=== PATIENT | male | born 1990 | race American Indian/Alaskan Native ===

== ENCOUNTER 2017-01-21 17:59 | Inpatient (IN) | payer OTHER ==
[2017-01-21] MEDS ORDERED: NACL 0.9% 1000 ML 2,000 ML ONE (18:10)
[2017-01-21] MEDS ORDERED: NACL 0.9% 1000 ML 1,000 ML IV ONE (18:39)
--- NOTE | 2017-01-21 18:39 | Emergency Department Report ---
HPI - General Chief Complaint: Hyperglycemia Time Seen by Provider: 01/21/17 18:16 - HPI HPI: This is a 26-year-old Afro-Malag[place] male who presents to the emergency department by EMS from home with complaint of some recent nausea, vomiting, weakness and shortness of breath. The patient was found in route, and once again upon presentation, to have critical high blood sugar. Patient has no history of diabetes. The patient is a vegan but says that he has been eating a lot of gummi bears, soda and fruit recently. He does not have a primary care doctor, any recent past medical history, any surgical history. No recent travel or sick contacts at home. The patient started off with nausea and vomiting yesterday and that has resolved but the patient now is weak and presents appearing tachypneic. He is a former occasional marijuana smoker but denies any other illicit drug use. No recent alcohol use. ED Past Medical Hx - Past Medical History Previous Medical History?: No - Surgical History Past Surgical History?: No - Social History Smoking Status: Never Smoker Substance Use Type: None - Medications Home Medications: Home Medications Medication Instructions Recorded Confirmed Last Taken Type No Known Home Medications [No 01/21/17 01/21/17 Unknown History Reported Home Medications] ED Review of Systems ROS: Stated complaint: DEHYDRATION Other details as noted in HPI Comment: All other systems reviewed and negative Constitutional: weakness. denies: fever Eyes: denies: eye pain, eye discharge, vision change ENT: denies: ear pain, throat pain Respiratory: shortness of breath. denies: cough Cardiovascular: denies: chest pain, palpitations Gastrointestinal: nausea, vomiting Genitourinary: denies: urgency, dysuria Musculoskeletal: denies: back pain, joint swelling, arthralgia Skin: denies: rash, lesions Neurological: weakness. denies: headache, numbness, paresthesias Physical Exam - Physical Exam Vital Signs: Vital Signs 01/21/17 18:09 Pulse Rate 129 H Blood Pressure 126/71 O2 Sat by Pulse 100 Oximetry Physical Exam: GENERAL: The patient is well-developed well-nourished. HEENT: Normocephalic. Atraumatic. Extraocular motions are intact. Patient has moist mucous membranes. Pupils equal reactive to light bilaterally. NECK: Supple. Trachea is midline. CHEST/LUNGS: Clear to auscultation. Patient has tachypnea and shallow breathing that appears consistent with Kussmaul respirations. HEART/CARDIOVASCULAR: Regular. There is mild to moderate tachycardia. There is no gallop rub or murmur. ABDOMEN: Abdomen is soft, nontender. Patient has normal bowel sounds. There is no abdominal distention. SKIN: Skin is warm and dry. NEURO: The patient is awake, alert, and oriented but does appear slightly dazed. The patient is cooperative. The patient has no focal neurologic deficits. The patient has normal speech. MUSCULOSKELETAL: There is no tenderness or deformity. There is no limitation range of motion. There is no evidence of acute injury. Cap refill less than 2 seconds. ED Course Vital Signs 01/21/17 18:09 Pulse Rate 129 H Blood Pressure 126/71 O2 Sat by Pulse 100 Oximetry ED Medical Decision Making - Lab Data Result diagrams: 01/21/17 18:36 01/21/17 19:34 - EKG Data -: EKG Interpreted by Me EKG shows normal: sinus rhythm, axis, intervals, QRS complexes (Q waves to the inferior leads), ST-T waves (nonspecific lateral ST-T waves) Rate: tachycardia (129 bpm) - EKG Data When compared to previous EKG there are: previous EKG unavailable Interpretation: other (sinus tachycardia, Q waves inferior leads, nonspecific ST -T changes) - Radiology Data Radiology results: image reviewed interpreted by me: Chest x-ray did not show any acute process. Heart is normal shape and size. No effusions. No pneumothorax. No signs of pneumonia seen. - Medical Decision Making 26-year-old male presents with a few days of nausea and vomiting followed by some weakness and appears with some abnormal respiration pattern. Patient has high anion gap acidosis and diabetic ketoacidosis as a new onset diabetic. Chest x-ray does not show any acute process. EKG does not show any ST elevation NH that is just very tachycardic. Patient given IV fluid resuscitation, started on insulin drip and will be admitted to the ICU. He has been accepted for admission by the hospitalist, Dr. Angela. - Differential Diagnosis DKA, HHNK, pneumonia, viral syndrome Critical Care Time: No Critical care attestation.: If time is entered above; I have spent that time in minutes in the direct care of this critically ill patient, excluding procedure time. ED Disposition Clinical Impression: High anion gap metabolic acidosis, Dehydration Diabetic ketoacidosis Qualifiers: Diabetes mellitus type: type 1 Diabetes mellitus complication detail: without coma Qualified Code(s): E10.10 - Type 1 diabetes mellitus with ketoacidosis without coma Leukocytosis Qualifiers: Leukocytosis type: unspecified Qualified Code(s): D72.829 - Elevated white blood cell count, unspecified Disposition: OP ADMITTED IP TO THIS HOSP Is pt being admited?: Yes Condition: Serious Instructions: Diabetic Ketoacidosis (ED) Time of Disposition: 20:54
[2017-01-21 18:53] LABS: Hematocrit 44.3 % (35.5-45.6); Hemoglobin 14.6 gm/dl (11.8-15.2); Mean Corpuscular HGB Conc 33 % (32-34); Mean Corpuscular Hemoglobin 33 pg (28-32); Mean Corpuscular Volume 100 fl (84-94); Platelet Count 191 K/mm3 (140-440); Red Blood Count 4.42 M/mm3 (3.65-5.03); Red Cell Distribution Width 12.3 % (13.2-15.2)
[2017-01-21 18:54] LABS: White Blood Count 22.3 K/mm3 (4.5-11.0)
[2017-01-21] MEDS ORDERED: D50W (25GM) IV PRN ×2 (18:55→20:49)
[2017-01-21] MEDS ORDERED: NovoLIN R 100 UNITS in NACL 0.9% 99 ML IV SCH (19:00)
[2017-01-21 19:23] LABS: BUN/Creatinine Ratio 27.14; Blastocytes % (Manual) 0 %; Blood Urea Nitrogen 38 mg/dL (9-20); Calcium 9.4 mg/dL (8.4-10.2); Chloride 82.4 mmol/L (98-107); Eosinophils % (Manual) 0 % (0.0-4.3); Potassium 5.7 mmol/L (3.6-5.0); Sodium 123 mmol/L (137-145)
[2017-01-21 19:24] LABS: Diff Status Complete; Platelet Estimate Consistent w Auto; RBC Morphology Normal
[2017-01-21] MEDS ORDERED: PROVENTIL IH ONE (19:26)
[2017-01-21] MEDS ORDERED: KIONEX PO ONE (19:27)
[2017-01-21 19:29] LABS: Anion Gap 42 mmol/L; Carbon Dioxide 4 mmol/L (22-30); Glucose 689 mg/dL (75-100)
--- NOTE | 2017-01-21 19:35 | Admit Criteria Form ---
Admission Criteria Documentation: DIABETES Clinical Indications for Admission to Inpatient Care (Place 'X' for any and all applicable criteria): Admission is indicated by presence of ALL (if I & II) or ANY ONE (if III or IV) of the following (1)(2)(3)(4): [X]I. Diabetes is uncontrolled as indicated by ANY ONE of the following: [X]a) Diabetic ketoacidosis as indicated by ALL of the following (8): [X]i) Hyperglycemia (eg, plasma glucose greater than 200 mg/ dL (11.1 mmol/L)) [X]ii) Acidosis (eg, arterial pH less than 7.30, serum bicarbonate level less than 15 mEq/L (mmol/L)) [ ]iii) Moderate ketonuria or ketonemia [ ]b) Hyperglycemic hyperosmolar state as indicated by ALL of the following(9)(10): [ ]i) Neurologic dysfunction (eg, stupor, coma, hemiparesis , seizure)(13) [ ]ii) Plasma glucose greater than 600 mg/dL (33.3 mmol/L) [ ]iii) Serum osmolality greater than 320 mOsm/kg (mmol/kg) [X ]c) Severe signs or symptoms secondary to hyperglycemia indicated by ANY ONE of the following: [ ]i) Altered mental status(10) [ ]ii) Significant hypovolemia or dehydration [ ]iii) Intractable nausea or vomiting [ ]iv) Unexplained fever or severe infection [X ]v) Severe electrolyte abnormality (eg, hypokalemia, hyperkalemia, hypernatremia) [ ]II. Management at other levels of care (Also use Diabetes: Observation Care as appropriate) is not feasible because of ANY ONE of the following: [ ]a) Condition was not adequately corrected with treatment at other levels of care. [ ]b) Treatment at other levels of care is not appropriate because of condition severity (eg, hyperosmolar coma). [X ]III. Contraindications and/or Inappropriate clinical situations for Observational Care in patients with Diabetes, when ANY ONE of the following is required: [ X]a) Patient require specific diagnostic workup or therapeutic intervention 22 [ ]b) Patient with abnormal vital signs or altered mental status 23 [ ]IV. General contraindications and/or Inappropriate clinical situations for Observational Care in patients with Diabetes, when ANY ONE of the following is required: [ ]a) Prediction of prolongation of LOS based on ANY ONE of the following may be considered as a contraindication for observational care 2, 3, 4, 5, 6, 7, 8, 9, 10, 11 [ ]i) Age > 65 yrs. [ ]ii) Patient arriving by ambulance [ ]iii) Patient with high acuity [ ]iv) Patient requiring vital sign monitoring [ ]v) Patient on IV medication [ ]b) Systolic blood pressures 180mmHg 3,12 [ ]c) Patient with altered mental status including delirium and other alteration of consciousness, (3) [ ]d) Patient whose discharge disposition will be to a intermediate home or rehabilitation home should not be managed in Emergency Department Observation Unit. CMS rule requires 3 days hospital stay before such placement.3,13 [ ]e) Patient with failure to thrive due to broad array of etiologies 3,16,17 [ ]f) Inability to ambulate 3,14 Extended stay beyond goal length of stay may be needed for(3)(20): [ ]a) Treatment of precipitating causes [ ]b) Development of hypoglycemia [ ]c) Complications of treatment [ ]d) Complications of decompensated diabetes (eg, acute gastric dilatation, persistent metabolic or neurologic derangement) [ ]e) Active Comorbidities [ ]f) Older patients( 65 years or older) The original [facility] [employer] content created by [employer] has been revised. The portions of the content which have been revised are identified through the use of italic text or in bold,and [facility] has neither reviewed nor approved the modified material. All other unmodified content is copyright [facility] division of [employer]. Please see references footnoted in the original [facility] [employer] edition 2016 Admission Criteria Met: Yes
[2017-01-21 20:02] LABS: BUN/Creatinine Ratio 28.46; Blood Urea Nitrogen 37 mg/dL (9-20); Calcium 9.3 mg/dL (8.4-10.2); Chloride 80.4 mmol/L (98-107); Potassium 5.1 mmol/L (3.6-5.0); Sodium 121 mmol/L (137-145)
[2017-01-21 20:03] LABS: Magnesium 2.3 mg/dL (1.7-2.3); Phosphorous 4.2 mg/dL (2.5-4.5)
[2017-01-21 20:05] LABS: Anion Gap 41 mmol/L
[2017-01-21 20:06] LABS: Carbon Dioxide 5 mmol/L (22-30); Glucose 627 mg/dL (75-100)
[2017-01-21] MEDS ORDERED: DILAUDID IV PRN (20:49)
[2017-01-21] MEDS ORDERED: DULCOLAX PR PRN (20:49)
--- NOTE | 2017-01-21 20:49 | Event Note ---
Date: 01/21/17 See H/p in reports DKA New onset DM Hyponatremia Metabolic acidosis
[2017-01-21 22:04] LABS: BUN/Creatinine Ratio 27.69; Blood Urea Nitrogen 36 mg/dL (9-20); Calcium 9.2 mg/dL (8.4-10.2); Chloride 84.6 mmol/L (98-107); Potassium 4.9 mmol/L (3.6-5.0); Sodium 124 mmol/L (137-145)
[2017-01-21 22:05] LABS: Magnesium 2.4 mg/dL (1.7-2.3); Phosphorous 2.5 mg/dL (2.5-4.5)
[2017-01-21 22:08] LABS: Anion Gap 39 mmol/L; Carbon Dioxide 5 mmol/L (22-30)
[2017-01-21 22:09] LABS: Glucose 555 mg/dL (75-100)
[2017-01-21] MEDS: NACL 0.9% 1000 ML 1,000 ML IV SCH (22:44)
[2017-01-21] MEDS: NovoLIN R 100 UNITS in NACL 0.9% 99 ML IV SCH (23:24)
[2017-01-21 23:29] LABS: BUN/Creatinine Ratio 28.33; Blood Urea Nitrogen 34 mg/dL (9-20); Calcium 9.3 mg/dL (8.4-10.2); Chloride 89.3 mmol/L (98-107); Glucose 465 mg/dL (75-100); Potassium 4.2 mmol/L (3.6-5.0); Sodium 126 mmol/L (137-145)
[2017-01-21 23:50] LABS: Anion Gap 36 mmol/L; Carbon Dioxide 5 mmol/L (22-30)
--- NOTE | 2017-01-22 00:35 | History and Physical Report ---
CHIEF COMPLAINT: Vomiting for 3 days. 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 Initially, the patient was very weak for 1 day after that started having vomiting, which has progressively increased over the last 3 days. The patient feels very weak and short of breath. Also, lost a lot of weight in the last couple of months. The patient does not have any history of diabetes. The patient is also a vegan, but states he has been eating a lot of gummy bears and junk foods recently. Does not have a primary care doctor. He has polyuria, polydipsia. He feels that his tongue is very dry. PAST MEDICAL HISTORY: No significant past medical history. PAST SURGICAL HISTORY: None. SOCIAL HISTORY: Does not smoke. No alcohol, no recreational drugs. REVIEW OF SYSTEMS: CONSTITUTIONAL: Weight loss and severe weakness present. No fever, no chills. HEENT: Has a dry mouth and dry tongue. Blurring of vision present. CARDIOVASCULAR AND RESPIRATORY SYSTEM: Has some shortness of breath. No chest pain, no palpitations. No congestion. GASTROINTESTINAL: Nausea and vomiting present. No diarrhea. Vomiting 5-6 times a day for the last 3 days. GENITOURINARY SYSTEM: No dysuria, no flank pain. MUSCULOSKELETAL SYSTEM: No joint pains. SKIN: No rashes. CENTRAL NERVOUS SYSTEM: No syncope, no seizures. A 14-point review of systems is done. PSYCHIATRIC: No depression. No suicidal or homicidal tendencies. LYMPHATIC AND ONCOLOGIC SYSTEM: No bruising. PHYSICAL EXAMINATION: GENERAL: Young male, cooperative during examination, in mild distress secondary to shortness of breath, slightly emaciated. VITAL SIGNS: Pulse rate is 129, blood pressure 126/71, sats are 100%. HEENT: Tongue is very dry. Mucous membranes are dry. NECK: Supple, no lymphadenopathy, no thyromegaly. LUNGS: Clear to auscultation and percussion. Good air entry. CARDIOVASCULAR: S1, S2 heard. No gallop, no murmur, no rub. Apical impulse in left fifth intercostal space in midclavicular line. ABDOMEN: Soft and benign. No hepatosplenomegaly. No guarding, no rigidity. Hernial orifices are normal. EXTREMITIES: Good pedal pulses. No pedal edema. SKIN: Dry. Skin turgor less. LABORATORY DATA: Significant for white count of 22,300, hemoglobin of 14.6, hematocrit of 44.3, platelet count of 191,000. Sodium is 121, potassium is 5.1, chloride is 80.4, bicarbonate is 5, BUN and creatinine 37 and 1.3, glucose is 627. PH is 6.985. EKG shows normal sinus rhythm, tachycardia, QRS complexes are normal. ST-T wave nonspecific changes and heart rate of 90 per minute. Chest x-ray did not show any acute process. ASSESSMENT AND PLAN: 1. Diabetic ketoacidosis, new onset diabetes, possibly juvenile diabetes. The patient is a 26-year-old can be Mature onset of diabetes in young. For now, diabetic ketoacidosis protocol initiated. IV insulin at 8 units initiated. The patient counseled about new onset diabetes. 2. Leukocytosis, possible urinary tract infection versus pneumonia. The patient will be treated with IV Levaquin 500 q.24 h. because of the elevated creatinine. 3. Hyponatremia should correct with correction of blood glucose levels. Pseudohyponatremia. 4. Hyperkalemia should correct with IV insulin. Diabetes education initiated. 5. Deep venous thrombosis prophylaxis, Lovenox 40 mg subcutaneous daily. 6. Renal insufficiency secondary to dehydration, should correct with IV fluids. CRITICAL CARE STATEMENT: The high probability of a clinically significant sudden or life-threatening deterioration of the endocrine and cardiovascular system, requirement of full and direct attention, intervention, and personal management. The aggregate critical care time was 40 minutes. The time is in addition to time spent performing reported procedures, but includes the followin. Data review and interpretation. 2. The patient assessment and monitoring of vital signs. 3. Documentation. 4. Medication orders and management. JOB# [id number] YUSRA/BOB GALE
[2017-01-22] MEDS ORDERED: SODIUM BICARBONATE 50 MEQ in NACL 0.9% 1000 ML 1,000 ML IV SCH (01:00)
[2017-01-22 01:23] LABS: Blood Urea Nitrogen 34 mg/dL (9-20); Calcium 9.3 mg/dL (8.4-10.2); Chloride 91.7 mmol/L (98-107); Glucose 414 mg/dL (75-100); Potassium 4.6 mmol/L (3.6-5.0); Sodium 131 mmol/L (137-145)
[2017-01-22] MEDS ORDERED: SODIUM BICARBONATE IV ONE ×2 (01:24)
[2017-01-22 01:26] LABS: Anion Gap 39 mmol/L
[2017-01-22 01:28] LABS: Carbon Dioxide 5 mmol/L (22-30)
[2017-01-22] MEDS: LEVAQUIN 500MG/100ML 500 MG/100 ML BAG IV SCH ×2 (02:33→21:04)
[2017-01-22 04:08] LABS: Blood Urea Nitrogen 31 mg/dL (9-20); Calcium 8.8 mg/dL (8.4-10.2); Carbon Dioxide 11 mmol/L (22-30); Glucose 264 mg/dL (75-100)
[2017-01-22 04:09] LABS: Anion Gap 30 mmol/L; Chloride 97.1 mmol/L (98-107); Potassium 3.5 mmol/L (3.6-5.0); Sodium 135 mmol/L (137-145)
[2017-01-22] MEDS ORDERED: THORAZINE IV ONE (05:10)
[2017-01-22] MEDS ORDERED: NACL 0.9% IV ONE (05:10)
[2017-01-22] MEDS: NovoLIN R 100 UNITS in NACL 0.9% 99 ML IV SCH (06:00)
[2017-01-22 06:17] LABS: Anion Gap 26 mmol/L; Blood Urea Nitrogen 27 mg/dL (9-20); Calcium 8.5 mg/dL (8.4-10.2); Carbon Dioxide 15 mmol/L (22-30); Chloride 100.6 mmol/L (98-107); Glucose 161 mg/dL (75-100); Potassium 3.3 mmol/L (3.6-5.0); Sodium 138 mmol/L (137-145)
--- NOTE | 2017-01-22 08:14 | XRay Report ---
AP CHEST: AP view of the chest demonstrates a normal mediastinal and cardiac contour with clear lungs and normal bony and soft tissue structures. IMPRESSION: Normal AP chest.
[2017-01-22] MEDS ORDERED: NACL 0.9% 250ML 250 ML ONE (09:40)
[2017-01-22 09:53] LABS: Urine Drugs of Abuse Note Disclamer
[2017-01-22 10:00] LABS: Bilirubin,Urine NEG (Negative); Blood,Urine MOD (Negative); Ketones,Urine 80 mg/dL (Negative); Leukocyte Esterase,Urine NEG (Negative); Mucus,Urine FEW /HPF; Nitrite,Urine NEG (Negative); RBC,Urine < 1.0 /HPF (0.0-6.0); Urobilinogen,Urine < 2.0 mg/dL (<2.0)
[2017-01-22] MEDS ORDERED: NACL 0.9% 250ML 250 ML IV ONE (10:06)
[2017-01-22] MEDS: LOVENOX SUB-Q SCH (10:46)
--- NOTE | 2017-01-22 11:13 | Consultation ---
History of Present Illness Consult date: 01/22/17 History of present illness: PULMONARY/CCM CONSULT NOTE (Full dictation # [id number]) Please see dictated notes for full details Medications and Allergies Allergies Allergy/AdvReac Type Severity Reaction Status Date / Time No Known Allergies Allergy Unverified 01/21/17 18:01 Home Medications Medication Instructions Recorded Confirmed Last Taken Type No Known Home Medications [No 01/21/17 01/21/17 Unknown History Reported Home Medications] Active Meds: Active Medications Al Hydrox/Mg Hydrox/Simethicone (Alum-Mag Hydrox-Simeth [id number]/5ml) 30 ml PO Q4H PRN PRN Reason: Indigestion Bisacodyl (Dulcolax) 10 mg KS QDAY PRN PRN Reason: constipation unrelieved by MOM Dextrose (D50w (25gm)) 0 ml IV ONCE PRN PRN Reason: Hypoglycemia Enoxaparin Sodium (Lovenox) 40 mg SUB-Q QDAY ISIDRO Last Admin: 01/22/17 10:46 Dose: 40 mg Hydromorphone HCl (Dilaudid) 0.5 mg IV Q3HR PRN PRN Reason: Pain , Severe (7-10) Sodium Chloride (Nacl 0.9% 1000 Ml) 1,000 mls @ 150 mls/hr IV DIRECT ISIDRO Last Admin: 01/21/17 22:44 Dose: 150 mls/hr Insulin Human Regular 100 (units/ Sodium Chloride) 100 mls @ 1 mls/hr IV TITR ISIDRO; 1 UNITS/HR PRN Reason: Protocol Last Titration: 01/22/17 10:10 Dose: 2 units/hr, 2 mls/hr Levofloxacin/Dextrose (Levaquin 500mg/100ml) 500 mg in 100 mls @ 100 mls/hr IV Q24H ISIDRO PRN Reason: Protocol Last Admin: 01/22/17 02:33 Dose: 100 mls/hr Potassium Chloride/Dextrose/Sod Cl (D5w/0.45% Nacl/Kcl 20 Meq) 20 meq in 1,000 mls @ 125 mls/hr IV DIRECT ISIDRO Influenza Virus Vaccine Quadrival (Fluarix Quad [id number](36 Mos+)) 60 mcg IM .ONCE ONE Stop: 01/22/17 12:01 Magnesium Hydroxide (Milk Of Magnesia) 30 ml PO Q4H PRN PRN Reason: Constipation Pneumococcal Polyvalent Vaccine (Pneumovax 23) 0.5 ml IM .ONCE ONE Stop: 01/22/17 12:01 Physical Examination Vital signs: Vital Signs Pulse BP Pulse Ox 129 H 126/71 100 01/21/17 18:09 01/21/17 18:09 01/21/17 18:09 Results - Laboratory Findings CBC and BMP: 01/21/17 18:36 01/22/17 10:57 Abnormal lab findings: Abnormal Labs 01/21/17 01/21/17 01/21/17 21:30 21:30 21:47 Sodium 124 L Potassium Chloride 84.6 L Carbon Dioxide 5 L* BUN 36 H Glucose 555 H* POC Glucose > 500 H Magnesium 2.4 H 01/21/17 01/21/17 01/22/17 23:00 23:05 00:02 Sodium 126 L Potassium Chloride 89.3 L Carbon Dioxide 5 L* BUN 34 H Glucose 465 H POC Glucose 444 H 360 H Magnesium 01/22/17 01/22/17 01/22/17 00:36 01:10 02:02 Sodium 131 L Potassium Chloride 91.7 L Carbon Dioxide 5 L* BUN 34 H Glucose 414 H POC Glucose 315 H 264 H Magnesium 01/22/17 01/22/17 01/22/17 03:04 03:25 04:10 Sodium 135 L Potassium 3.5 L D Chloride 97.1 L Carbon Dioxide 11 L BUN 31 H Glucose 264 H POC Glucose 243 H 207 H Magnesium 01/22/17 01/22/17 01/22/17 05:10 05:17 08:12 Sodium Potassium 3.3 L Chloride Carbon Dioxide 15 L BUN 27 H Glucose 161 H POC Glucose 211 H 129 H Magnesium 01/22/17 10:05 Sodium Potassium Chloride Carbon Dioxide BUN Glucose POC Glucose 128 H Magnesium
[2017-01-22 11:31] LABS: Anion Gap 17 mmol/L; BUN/Creatinine Ratio 28.75; Blood Urea Nitrogen 23 mg/dL (9-20); Calcium 8.4 mg/dL (8.4-10.2); Carbon Dioxide 21 mmol/L (22-30); Chloride 99.1 mmol/L (98-107); Glucose 147 mg/dL (75-100); Sodium 134 mmol/L (137-145)
[2017-01-22 11:36] LABS: Potassium 2.9 mmol/L (3.6-5.0)
[2017-01-22] MEDS ORDERED: FLUARIX QUAD 2016-2017(36 MOS+) IM ONE (12:00)
[2017-01-22] MEDS ORDERED: PNEUMOVAX 23 IM ONE (12:00)
[2017-01-22] MEDS: KCL 10MEQ/100ML 10 MEQ/100 ML BAG IV SCH ×8 (12:13→20:00)
[2017-01-22] MEDS: D5W/0.45% NACL/KCL 20 MEQ 20 MEQ/1,000 ML BAG IV SCH ×2 (12:14→21:03)
[2017-01-22] MEDS: PEPCID PO SCH (13:05)
[2017-01-22] MEDS ORDERED: NACL 0.9% 1000 ML 1,000 ML IV ONE ×2 (13:23→13:34)
[2017-01-22 13:39] LABS: BUN/Creatinine Ratio 28.57; Blood Urea Nitrogen 20 mg/dL (9-20); Calcium 8.2 mg/dL (8.4-10.2); Carbon Dioxide 20 mmol/L (22-30); Chloride 99.8 mmol/L (98-107); Glucose 104 mg/dL (75-100); Sodium 133 mmol/L (137-145)
[2017-01-22] MEDS ORDERED: NACL 0.9% 1000 ML 1,000 ML IV SCH (14:00)
[2017-01-22 14:32] LABS: Anion Gap 17 mmol/L; Potassium 3.5 mmol/L (3.6-5.0)
--- NOTE | 2017-01-22 15:43 | XRay Report ---
AP CHEST: HISTORY: PICC placement AP view of the chest demonstrates a normal mediastinal and cardiac contour with clear lungs and normal bony and soft tissue structures. Right arm PICC terminates at the cavoatrial junction. IMPRESSION: Unremarkable AP chest.
[2017-01-22 16:39] LABS: Anion Gap 14 mmol/L; BUN/Creatinine Ratio 28.33; Blood Urea Nitrogen 17 mg/dL (9-20); Calcium 7.9 mg/dL (8.4-10.2); Carbon Dioxide 22 mmol/L (22-30); Glucose 130 mg/dL (75-100); Potassium 3.1 mmol/L (3.6-5.0); Sodium 136 mmol/L (137-145)
--- NOTE | 2017-01-22 16:50 | Progress Note ---
Assessment and Plan Assessment and plan: DKA with altered mental status Malnutrition Leukocytosis Substance abuse - Patient admitted to the ICU and on DKA protocol - Replete potassium - Continue empirically on Levaquin - We will monitor closely - will certified drug counselor once his mentation cleared - Urinalysis is negative for UTI, blood cultures pending DVT prophylaxis - lovenox Disposition - Continue inpatient care The high probability of a clinically significant, sudden or life threatening deterioration of the [Endocrine, neurologic] system(s) required my full and direct attention, intervention and personal management. The aggregate critical care time was [32] minutes. This time is in addition to time spent performing reported procedures but includes the following: [x] Data Review and interpretation [x] Patient assessment and monitoring of vital signs [x] Documentation [x] Medication orders and management History Interval history: Patient was seen and evaluated at the bedside. Patient was lethargic and history was taken from the father who was in the room with the patient. I have discussed the management plan with the father and the nurse. I called the mother to discuss about the patent @[phone] but she didn't pick up driver the phone. Hospitalist Physical - Physical exam Narrative exam: Not in cardiopulmonary distress. The patient is cachectic. Vital signs as documented. Head exam is unremarkable. No scleral icterus . Neck is without jugular venous distension, thyromegaly, or carotid bruits. Lungs are clear to auscultation. Cardiac exam reveals regular rate and Rhythm. First and second heart sounds normal. No murmurs, rubs or gallops. Abdominal exam reveals normal bowel sounds, no masses, no organomegaly and no aortic enlargement. Extremities are nonedematous and both femoral and pedal pulses are normal. 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 - Constitutional Vitals: Temp Pulse Resp BP Pulse Ox 98.2 F 110 H 12 96/64 100 01/22/17 16:00 01/22/17 14:10 01/22/17 14:10 01/22/17 14:10 01/22/17 14:10 Results - Labs CBC & Chem 7: 01/21/17 18:36 01/22/17 15:30 Labs: Laboratory Last Values WBC 22.3 K/mm3 (4.5-11.0) H 01/21/17 18:36 RBC 4.42 M/mm3 (3.65-5.03) 01/21/17 18:36 Hgb 14.6 gm/dl (11.8-15.2) 01/21/17 18:36 Hct 44.3 % (35.5-45.6) 01/21/17 18:36 MCV 100 fl (84-94) H 01/21/17 18:36 MCH 33 pg (28-32) H 01/21/17 18:36 MCHC 33 % (32-34) 01/21/17 18:36 RDW 12.3 % (13.2-15.2) L 01/21/17 18:36 Plt Count 191 K/mm3 (140-440) 01/21/17 18:36 Add Manual Diff Complete 01/21/17 18:36 Total Counted 100 01/21/17 18:36 Seg Neutrophils % Beam Saw Operator 01/21/17 18:36 Seg Neuts % (Manual) 90.0 % (40.0-70.0) H 01/21/17 18:36 Band Neutrophils % 6.0 % 01/21/17 18:36 Lymphocytes % (Manual) 2.0 % (13.4-35.0) L 01/21/17 18:36 Reactive Lymphs % (Man) 0 % 01/21/17 18:36 Monocytes % (Manual) 2.0 % (0.0-7.3) 01/21/17 18:36 Eosinophils % (Manual) 0 % (0.0-4.3) 01/21/17 18:36 Metamyelocytes % 0 % 01/21/17 18:36 Myelocytes % 0 % 01/21/17 18:36 Promyelocytes % 0 % 01/21/17 18:36 Blast Cells % 0 % 01/21/17 18:36 Nucleated RBC % Not Reportable 01/21/17 18:36 Seg Neutrophils # Man 20.1 K/mm3 (1.8-7.7) H 01/21/17 18:36 Band Neutrophils # 1.3 K/mm3 01/21/17 18:36 Lymphocytes # (Manual) 0.4 K/mm3 (1.2-5.4) L 01/21/17 18:36 Abs React Lymphs (Man) 0.0 K/mm3 01/21/17 18:36 Monocytes # (Manual) 0.4 K/mm3 (0.0-0.8) 01/21/17 18:36 Eosinophils # (Manual) 0.0 K/mm3 (0.0-0.4) 01/21/17 18:36 Basophils # (Manual) 0.0 K/mm3 (0.0-0.1) 01/21/17 18:36 Metamyelocytes # 0.0 K/mm3 01/21/17 18:36 Myelocytes # 0.0 K/mm3 01/21/17 18:36 Promyelocytes # 0.0 K/mm3 01/21/17 18:36 Blast Cells # 0.0 K/mm3 01/21/17 18:36 WBC Morphology Not Reportable 01/21/17 18:36 Hypersegmented Neuts Not Reportable 01/21/17 18:36 Hyposegmented Neuts Not Reportable 01/21/17 18:36 Hypogranular Neuts Not Reportable 01/21/17 18:36 Smudge Cells Not Reportable 01/21/17 18:36 Toxic Granulation Not Reportable 01/21/17 18:36 Toxic Vacuolation Not Reportable 01/21/17 18:36 Dohle Bodies Not Reportable 01/21/17 18:36 Pelger-Huet Anomaly Not Reportable 01/21/17 18:36 Ruthie Rods Not Reportable 01/21/17 18:36 Platelet Estimate Consistent w auto 01/21/17 18:36 Clumped Platelets Not Reportable 01/21/17 18:36 Plt Clumps, EDTA Not Reportable 01/21/17 18:36 Large Platelets Not Reportable 01/21/17 18:36 Giant Platelets Not Reportable 01/21/17 18:36 Platelet Satelliting Not Reportable 01/21/17 18:36 Plt Morphology Comment Not Reportable 01/21/17 18:36 RBC Morphology Normal 01/21/17 18:36 Dimorphic RBCs Not Reportable 01/21/17 18:36 Polychromasia Not Reportable 01/21/17 18:36 Hypochromasia Not Reportable 01/21/17 18:36 Poikilocytosis Not Reportable 01/21/17 18:36 Anisocytosis Not Reportable 01/21/17 18:36 Microcytosis Not Reportable 01/21/17 18:36 Macrocytosis Not Reportable 01/21/17 18:36 Spherocytes Not Reportable 01/21/17 18:36 Pappenheimer Bodies Not Reportable 01/21/17 18:36 Sickle Cells Not Reportable 01/21/17 18:36 Target Cells Not Reportable 01/21/17 18:36 Tear Drop Cells Not Reportable 01/21/17 18:36 Ovalocytes Not Reportable 01/21/17 18:36 Helmet Cells Not Reportable 01/21/17 18:36 [place] Bodies Not Reportable 01/21/17 18:36 [place] Rings Not Reportable 01/21/17 18:36 Lui Cells Not Reportable 01/21/17 18:36 Bite Cells Not Reportable 01/21/17 18:36 Crenated Cell Not Reportable 01/21/17 18:36 Elliptocytes Not Reportable 01/21/17 18:36 Acanthocytes (Spur) Not Reportable 01/21/17 18:36 Rouleaux Not Reportable 01/21/17 18:36 Hemoglobin C Crystals Not Reportable 01/21/17 18:36 Schistocytes Not Reportable 01/21/17 18:36 Malaria parasites Not Reportable 01/21/17 18:36 Gregory Bodies Not Reportable 01/21/17 18:36 Hem Pathologist Commnt No 01/21/17 18:36 VBG pH 6.985 (7.320-7.420) L* 01/21/17 18:36 Sodium 136 mmol/L (137-145) L 01/22/17 15:30 Potassium 3.1 mmol/L (3.6-5.0) L 01/22/17 15:30 Chloride 103.0 mmol/L (98-107) 01/22/17 15:30 Carbon Dioxide 22 mmol/L (22-30) 01/22/17 15:30 Anion Gap 17 mmol/L 01/22/17 12:52 BUN 17 mg/dL (9-20) 01/22/17 15:30 Creatinine 0.6 mg/dL (0.8-1.5) L 01/22/17 15:30 Estimated GFR > 60 ml/min 01/22/17 15:30 BUN/Creatinine Ratio 28.33 % 01/22/17 15:30 Glucose 130 mg/dL (75-100) H 01/22/17 15:30 POC Glucose 172 (70-105) H 01/22/17 14:35 Hemoglobin A1c 12.2 % (4-6) H 01/21/17 18:36 Osmolality 331 Mosm/kg 01/21/17 21:30 Lactic Acid 1.2 mmol/L (0.7-2.0) 01/22/17 13:24 Calcium 7.9 mg/dL (8.4-10.2) L 01/22/17 15:30 Phosphorus 2.5 mg/dL (2.5-4.5) D 01/21/17 21:30 Magnesium 2.4 mg/dL (1.7-2.3) H 01/21/17 21:30 C-Reactive Protein 8.90 mg/dL (0.00-1.30) H 01/22/17 12:52 NT-Pro-B Natriuret Pep 1581 pg/mL (0-450) H 01/22/17 12:52 Urine Color Yellow (Yellow) 01/22/17 09:35 Urine Turbidity Clear (Clear) 01/22/17 09:35 Urine pH 6.0 (5.0-7.0) 01/22/17 09:35 Ur Specific [place] 1.018 (1.003-1.030) 01/22/17 09:35 Urine Protein 30 mg/dl mg/dL (Negative) 01/22/17 09:35 Urine Glucose (UA) >=500 mg/dL (Negative) 01/22/17 09:35 Urine Ketones 80 mg/dL (Negative) 01/22/17 09:35 Urine Blood Mod (Negative) 01/22/17 09:35 Urine Nitrite Neg (Negative) 01/22/17 09:35 Urine Bilirubin Neg (Negative) 01/22/17 09:35 Urine Urobilinogen < 2.0 mg/dL (<2.0) 01/22/17 09:35 Ur Leukocyte Esterase Neg (Negative) 01/22/17 09:35 Urine WBC (Auto) 2.0 /HPF (0.0-6.0) 01/22/17 09:35 Urine RBC (Auto) < 1.0 /HPF (0.0-6.0) 01/22/17 09:35 U Epithel Cells (Auto) < 1.0 /HPF (0-13.0) 01/22/17 09:35 Urine Mucus Few /HPF 01/22/17 09:35 Urine Opiates Screen Presumptive negative 01/22/17 09:35 Urine Methadone Screen Presumptive negative 01/22/17 09:35 Ur Barbiturates Screen Presumptive negative 01/22/17 09:35 Ur Phencyclidine Scrn Presumptive negative 01/22/17 09:35 Ur Amphetamines Screen Presumptive negative 01/22/17 09:35 U Benzodiazepines Scrn Presumptive negative 01/22/17 09:35 Urine Cocaine Screen Presumptive negative 01/22/17 09:35 U Marijuana (THC) Screen Presumptive positive 01/22/17 09:35 Drugs of Abuse Note Disclamer 01/22/17 09:35 Hypokalemia, positive for marijuana.
--- NOTE | 2017-01-22 18:30 | Cat Scan Report ---
FINAL REPORT EXAM: CT HEAD/BRAIN WO CON HISTORY: Altered mental status TECHNIQUE: CT examination of the head without IV contrast PRIORS: None. FINDINGS: No acute air-fluid level visualized in the included air-filled sinuses. Bone windows demonstrate no fracture. The brain is without mass, mass effect, hemorrhage, or acute infarct. There is no extra-axial intracranial bleed, brain bleed, or midline shift. The ventricles and sulci are age-appropriate. IMPRESSION: No acute CVA, intracranial bleed, or brain mass
--- NOTE | 2017-01-23 01:35 | Consultation ---
CONSULTING PHYSICIAN: Mk Angela MD REASON FOR CONSULTATION: Diabetic ketoacidosis, need for IV insulin admission. CHIEF COMPLAINT AND HISTORY OF PRESENT ILLNESS: The patient is a young 26-year-old -[place] male with past medical history according to him none, who came into the Emergency Room complaining of recent nausea, vomiting, overall generalized weakness, shortness of breath. He was found to have high blood sugars, no prior history. He denied any sick contacts. Denied any chest pain, any cough, or expectoration, any dysuria, any open sores or wounds on his body. He was evaluated and found to be essentially new onset diabetic and diabetic ketoacidosis, admitted to the Intensive Care Unit. However, when I stopped by to see him, he was hypotensive, mean arterial pressures running in the 50s. He was slow to arouse, but had spontaneous movements to all the extremities. With regards to tobacco use/abuse history, he denies any history whatsoever. When asked about a family history of diabetes, he is unable to give me an answer. This really is as much of the history of presentation as I have. PAST MEDICAL HISTORY: None. PAST SURGICAL HISTORY: None. MEDICATIONS: He was on at the time I stopped by to see him, according to the medication administration record included the following: He was on IV insulin at 2 units per hour, p.r.n. Dulcolax, Lovenox 40 mg subcutaneous daily, Pepcid 20 mg p.o. daily, Dilaudid 0.5 mg IV q.3h. p.r.n., Levaquin 500 mg IV daily, milk of magnesia p.r.n., potassium chloride 10 mEq was being replaced, I believe 8 bags were being given. He was on a D5 half NS drip at 125 an hour and had received some sodium chloride at 150 an hour earlier. ALLERGIES: No known drug allergies. DIET: Thin gentleman. Denies significant weight loss or gain in the preceding few weeks to months. FAMILY AND SOCIAL HISTORY: He is smoker. Denies alcohol or illicit drug use or abuse. He does admit to occasional . Family history otherwise noncontributory. REVIEW OF SYSTEMS: No loss of consciousness. No new onset seizures. No new onset focal weakness. No gross hematochezia or melena. No gross hematuria or dysuria. No hematemesis. He did have emesis. He had nausea. No hemoptysis. No palpitations. Complete review of systems obtained. Pertinent positives and/or negatives as in body of history above, otherwise they are noncontributory. PHYSICAL EXAMINATION: VITAL SIGNS: At presentation, he was afebrile, temperature 98.2, pulse was 129, respiratory rate was 22, blood pressure was 126/71, oxygen sats were 100%, inspired oxygen concentration was not recorded. Blood pressure has trended down and as mentioned, last blood pressure was 76/40. HEAD, EYES, EARS, NOSE, AND THROAT: Pupils are equal, round, about 3-4 mm, reactive to light. Extraocular muscle movements are intact. Oropharynx is a Mallampati #2 oropharynx. He has a whitish creamy exudate over his tongue and nontender. Grossly, no palpable lymph nodes in the supraclavicular or submandibular lymph node chains. LUNGS: Auscultation of both lung carranza actually revealed faint right lower lobe rales. No wheezing. HEART: Heart sounds 1 and 2 are heard, regular rate and rhythm at the time of my evaluation. He was tachycardic. ABDOMEN: Flat, soft, bowel sounds are positive, nontender. EXTREMITIES: Without overt digital clubbing, cyanosis, or pedal edema. NEUROLOGIC: The exam was grossly nonfocal. He was lethargic. LABORATORY DATA: From my review are as follows: White cell count 20,300 with a hemoglobin of 14.6, hematocrit of 44.3, and platelet count of 191. Venous blood gas was 7.0, essentially at presentation. Serum sodium was 121, potassium 5.1, chloride 80, bicarbonate was 5, BUN was 37, creatinine was 1.3, glucose was 627. Hemoglobin A1c 12.2. Phosphorus and mag were within normal limits. Urinalysis today shows negative for leukocyte esterase and nitrites, really bland. Urine drug screen was presumptive positive for tetrahydrocannabinol. Chest x-ray was done. I have reviewed the radiologist's interpretation. I have also reviewed the chest x-ray itself, and I do agree it is a normal looking chest x-ray of the young thin gentleman. No gross pneumothorax, no gross bony fracture. ASSESSMENT AND PLAN: We have a young gentleman in with a new onset diabetes, diabetic ketoacidosis, but significantly hypotensive. His numbers do not suggest overwhelming intravascular volume depletion; however, we certainly cannot rule that out. Recommendations will be to continue empiric antibiotics as ordered. Cultures have been ordered. I will get a CRP level as well as lactic acid levels and trend as necessary. He is going to get a bolus of 1 liter of normal saline now and we will target mean arterial pressures greater than or equal to about 60 mmHg. Aspiration precautions will be maintained and oxygen will be titrated as necessary to keep sats greater than or equal to about 92%, possible infection include possible pneumonia, may be an aspiration pneumonia. I will also send sputum for cultures and sensitivities. He is appropriately now on GI and DVT prophylaxis. Flu and pneumonia vaccination will be per protocol. Thank you very much for the consult, Dr. Angela. We will follow along and make further recommendations as picture progresses/becomes clearer. JOB# [id number] ACACIA/BOB
[2017-01-23 06:07] LABS: Eosinophils % (Auto) 0.1 % (0.0-4.3)
[2017-01-23 06:14] LABS: Anion Gap 15 mmol/L; Blood Urea Nitrogen 8 mg/dL (9-20); Calcium 7.9 mg/dL (8.4-10.2); Carbon Dioxide 24 mmol/L (22-30); Glucose 140 mg/dL (75-100); Sodium 135 mmol/L (137-145)
[2017-01-23 06:17] LABS: Potassium 2.1 mmol/L (3.6-5.0)
[2017-01-23] MEDS ORDERED: K-DUR PO ONE ×2 (07:18→09:08)
[2017-01-23 07:52] LABS: Basophils % (Auto) 0.1 % (0.0-1.8); Hemoglobin 12.4 gm/dl (11.8-15.2); Mean Corpuscular HGB Conc 36 % (32-34); Mean Corpuscular Hemoglobin 33 pg (28-32); Platelet Count 124 K/mm3 (140-440); Red Blood Count 3.73 M/mm3 (3.65-5.03); Red Cell Distribution Width 12.6 % (13.2-15.2); White Blood Count 13.2 K/mm3 (4.5-11.0)
[2017-01-23 07:56] LABS: Hematocrit 34.4 % (35.5-45.6); Mean Corpuscular Volume 92 fl (84-94)
[2017-01-23] MEDS ORDERED: KCL 20MEQ/100ML 20 MEQ/100 ML BAG IV SCH (08:00)
[2017-01-23 08:22] LABS: Magnesium 1.8 mg/dL (1.7-2.3)
[2017-01-23 08:45] LABS: Phosphorous < 0.3 mg/dL (2.5-4.5)
[2017-01-23] MEDS ORDERED: KPHOS 45 MMOL in NACL 0.9% 500 ML 500 ML IV ONE (09:30)
[2017-01-23] MEDS: KPHOS 45 MMOL in NACL 0.9% 500 ML 500 ML IV SCH ×2 (09:47→15:17)
[2017-01-23] MEDS: LOVENOX SUB-Q SCH (09:49)
[2017-01-23] MEDS: PEPCID PO SCH (09:50)
[2017-01-23] MEDS: LEVAQUIN PO SCH (09:52)
[2017-01-23] MEDS ORDERED: MAGNESIUM SULFATE 2GM/50ML 2 GM/50 ML BAG IV ONE ×2 (10:00→23:00)
--- NOTE | 2017-01-23 11:22 | Progress Note ---
Assessment and Plan - Patient Problems (1) Sepsis syndrome Current Visit: Yes Status: Acute Plan to address problem: - may all be related to hypovolemia - cultures NGTD - continue empiric AB's - continue volume resuscitation (2) Diabetic ketoacidosis Current Visit: Yes Status: Acute Qualifiers: Diabetes mellitus type: type 1 Diabetes mellitus complication detail: without coma Qualified Code(s): E10.10 - Type 1 diabetes mellitus with ketoacidosis without coma Plan to address problem: - weaned off IV insulin - per attending otherwise Subjective Date of service: 01/23/17 Principal diagnosis: DKA; Sepsis Syndrome Interval history: Seen and examined at bedside; 24 hour events reviewed; nursing and respiratory care staff consulted; no adverse overnight events reported to me; resting in bed ; looks and feels much better; hypotension improved and weaning off vasopressors ; No N/V/F/C Objective Vital Signs - 12hr 01/22/17 01/22/17 01/22/17 23:30 23:40 23:42 Temperature Pulse Rate 106 H 100 H 101 H Respiratory 13 12 12 Rate Blood Pressure 93/52 93/52 93/52 O2 Sat by Pulse 98 98 98 Oximetry 01/22/17 01/23/17 01/23/17 23:50 00:00 00:10 Temperature 98.8 F Pulse Rate 107 H 102 H 102 H Respiratory 11 L 12 13 Rate Blood Pressure 93/52 99/51 99/51 O2 Sat by Pulse 98 97 98 Oximetry 01/23/17 01/23/17 01/23/17 00:20 00:30 00:40 Temperature Pulse Rate 102 H 101 H 95 H Respiratory 16 17 15 Rate Blood Pressure 99/51 99/51 99/51 O2 Sat by Pulse 100 100 100 Oximetry 01/23/17 01/23/17 01/23/17 00:50 01:00 01:10 Temperature Pulse Rate 97 H 97 H 107 H Respiratory 13 11 L 11 L Rate Blood Pressure 99/51 97/45 97/45 O2 Sat by Pulse 99 98 Oximetry 01/23/17 01/23/17 01/23/17 01:20 01:30 01:40 Temperature Pulse Rate 107 H 110 H 106 H Respiratory 11 L 15 11 L Rate Blood Pressure 97/45 97/45 97/45 O2 Sat by Pulse 98 98 98 Oximetry 01/23/17 01/23/17 01/23/17 01:50 02:00 02:10 Temperature Pulse Rate 117 H 110 H 96 H Respiratory 15 16 17 Rate Blood Pressure 97/45 101/55 101/55 O2 Sat by Pulse 98 98 100 Oximetry 01/23/17 01/23/17 01/23/17 02:20 02:30 02:40 Temperature Pulse Rate 97 H 93 H 92 H Respiratory 17 15 12 Rate Blood Pressure 101/55 101/55 101/55 O2 Sat by Pulse 100 98 99 Oximetry 01/23/17 01/23/17 01/23/17 02:50 03:00 03:10 Temperature Pulse Rate 99 H 103 H 90 Respiratory 12 14 12 Rate Blood Pressure 101/55 88/49 88/49 O2 Sat by Pulse 99 100 Oximetry 01/23/17 01/23/17 01/23/17 03:20 03:30 03:40 Temperature Pulse Rate 93 H 93 H 89 Respiratory 15 18 13 Rate Blood Pressure 88/49 88/49 88/49 O2 Sat by Pulse 100 100 100 Oximetry 01/23/17 01/23/17 01/23/17 03:50 04:00 04:10 Temperature 98.4 F Pulse Rate 87 94 H 98 H Respiratory 15 12 12 Rate Blood Pressure 88/49 86/47 86/47 O2 Sat by Pulse 100 97 Oximetry 01/23/17 01/23/17 01/23/17 04:20 04:30 04:40 Temperature Pulse Rate 96 H 99 H 82 Respiratory 13 12 13 Rate Blood Pressure 86/47 86/47 86/47 O2 Sat by Pulse 98 98 100 Oximetry 01/23/17 01/23/17 01/23/17 04:50 05:00 05:10 Temperature Pulse Rate 84 89 93 H Respiratory 15 12 10 L Rate Blood Pressure 86/47 89/48 89/48 O2 Sat by Pulse 100 100 Oximetry 01/23/17 01/23/17 01/23/17 05:20 05:30 05:40 Temperature Pulse Rate 87 94 H 97 H Respiratory 10 L 13 13 Rate Blood Pressure 89/48 89/48 89/48 O2 Sat by Pulse 100 97 98 Oximetry 01/23/17 01/23/17 01/23/17 05:50 06:00 06:10 Temperature Pulse Rate 90 85 91 H Respiratory 12 13 10 L Rate Blood Pressure 89/48 95/48 95/48 O2 Sat by Pulse 99 99 Oximetry 01/23/17 01/23/17 01/23/17 06:20 06:30 06:40 Temperature Pulse Rate 91 H 91 H 96 H Respiratory 10 L 10 L 11 L Rate Blood Pressure 95/48 95/48 95/48 O2 Sat by Pulse 99 98 98 Oximetry 01/23/17 01/23/17 01/23/17 06:50 07:00 07:10 Temperature Pulse Rate 95 H 94 H 96 H Respiratory 12 11 L 14 Rate Blood Pressure 95/48 99/44 99/44 O2 Sat by Pulse 98 98 98 Oximetry 01/23/17 01/23/17 01/23/17 07:20 07:30 07:40 Temperature Pulse Rate 95 H 90 89 Respiratory 14 16 16 Rate Blood Pressure 99/44 99/44 99/44 O2 Sat by Pulse 99 100 100 Oximetry 01/23/17 01/23/17 01/23/17 07:50 08:00 08:10 Temperature 98.4 F Pulse Rate 88 86 89 Respiratory 14 12 16 Rate Blood Pressure 99/44 93/53 93/53 O2 Sat by Pulse 99 98 98 Oximetry 01/23/17 01/23/17 01/23/17 08:20 08:30 08:40 Temperature Pulse Rate 87 88 95 H Respiratory 13 11 L 12 Rate Blood Pressure 93/53 93/53 93/53 O2 Sat by Pulse 97 98 98 Oximetry 01/23/17 01/23/17 01/23/17 08:50 09:00 09:10 Temperature Pulse Rate 95 H 95 H 98 H Respiratory 12 13 15 Rate Blood Pressure 93/53 98/44 98/44 O2 Sat by Pulse 97 98 99 Oximetry 01/23/17 01/23/17 01/23/17 09:20 09:30 09:40 Temperature Pulse Rate 85 89 94 H Respiratory 10 L 12 15 Rate Blood Pressure 98/44 98/44 98/44 O2 Sat by Pulse 99 99 100 Oximetry 01/23/17 01/23/17 01/23/17 09:50 10:00 10:10 Temperature Pulse Rate 85 94 H 86 Respiratory 17 13 15 Rate Blood Pressure 98/44 92/65 92/65 O2 Sat by Pulse 100 100 100 Oximetry 01/23/17 01/23/17 01/23/17 10:20 10:30 10:40 Temperature Pulse Rate 87 97 H 97 H Respiratory 18 15 16 Rate Blood Pressure 92/65 92/65 92/65 O2 Sat by Pulse 100 99 98 Oximetry 01/23/17 10:50 Temperature Pulse Rate 93 H Respiratory 12 Rate Blood Pressure 92/65 O2 Sat by Pulse 100 Oximetry Constitutional: no acute distress Eyes: non-icteric ENT: oropharynx moist Neck: supple, no lymphadenopathy Effort: normal Ascultation: Bilateral: clear Cardiovascular: regular rate and rhythm Gastrointestinal: normoactive bowel sounds, soft, non-tender, non-distended Integumentary: normal Extremities: no cyanosis, no edema, pulses normal, no ischemia or petechiae Neurologic: normal mental status, non-focal exam, pupils equal and round, motor strength normal and, other (weak) Psychiatric: mood appropriate, affect normal CBC and BMP: 01/24/17 09:48 01/25/17 04:27 Abnormal lab findings: Abnormal Labs 01/21/17 01/21/17 01/21/17 21:30 21:30 21:47 WBC Hct MCH MCHC RDW Plt Count Lymph % (Auto) Lymph # Seg Neutrophils % Seg Neutrophils # Sodium 124 L Potassium Chloride 84.6 L Carbon Dioxide 5 L* BUN 36 H Creatinine Glucose 555 H* POC Glucose > 500 H Calcium Phosphorus Magnesium 2.4 H C-Reactive Protein NT-Pro-B Natriuret Pep 01/21/17 01/21/17 01/22/17 23:00 23:05 00:02 WBC Hct MCH MCHC RDW Plt Count Lymph % (Auto) Lymph # Seg Neutrophils % Seg Neutrophils # Sodium 126 L Potassium Chloride 89.3 L Carbon Dioxide 5 L* BUN 34 H Creatinine Glucose 465 H POC Glucose 444 H 360 H Calcium Phosphorus Magnesium C-Reactive Protein NT-Pro-B Natriuret Pep 01/22/17 01/22/17 01/22/17 00:36 01:10 02:02 WBC Hct MCH MCHC RDW Plt Count Lymph % (Auto) Lymph # Seg Neutrophils % Seg Neutrophils # Sodium 131 L Potassium Chloride 91.7 L Carbon Dioxide 5 L* BUN 34 H Creatinine Glucose 414 H POC Glucose 315 H 264 H Calcium Phosphorus Magnesium C-Reactive Protein NT-Pro-B Natriuret Pep 01/22/17 01/22/17 01/22/17 03:04 03:25 04:10 WBC Hct MCH MCHC RDW Plt Count Lymph % (Auto) Lymph # Seg Neutrophils % Seg Neutrophils # Sodium 135 L Potassium 3.5 L D Chloride 97.1 L Carbon Dioxide 11 L BUN 31 H Creatinine Glucose 264 H POC Glucose 243 H 207 H Calcium Phosphorus Magnesium C-Reactive Protein NT-Pro-B Natriuret Pep 01/22/17 01/22/17 01/22/17 05:10 05:17 07:11 WBC Hct [facility] RDW Plt Count Lymph % (Auto) Lymph # Seg Neutrophils % Seg Neutrophils # Sodium Potassium 3.3 L Chloride Carbon Dioxide 15 L BUN 27 H Creatinine Glucose 161 H POC Glucose 211 H 239 H Calcium Phosphorus Magnesium C-Reactive Protein NT-Pro-B Natriuret Pep 01/22/17 01/22/17 01/22/17 08:03 08:12 08:57 WBC Hct [facility] RDW Plt Count Lymph % (Auto) Lymph # Seg Neutrophils % Seg Neutrophils # Sodium Potassium Chloride Carbon Dioxide BUN Creatinine Glucose POC Glucose 129 H 129 H 127 H Calcium Phosphorus Magnesium C-Reactive Protein NT-Pro-B Natriuret Pep 01/22/17 01/22/17 01/22/17 10:05 10:51 10:57 WBC Hct [facility] RDW Plt Count Lymph % (Auto) Lymph # Seg Neutrophils % Seg Neutrophils # Sodium 134 L Potassium 2.9 L* Chloride Carbon Dioxide 21 L BUN 23 H Creatinine Glucose 147 H POC Glucose 128 H 211 H Calcium Phosphorus Magnesium C-Reactive Protein NT-Pro-B Natriuret Pep 01/22/17 01/22/17 01/22/17 12:52 12:52 12:52 WBC Hct [facility] RDW Plt Count Lymph % (Auto) Lymph # Seg Neutrophils % Seg Neutrophils # Sodium 133 L Potassium 3.5 L D Chloride Carbon Dioxide 20 L BUN Creatinine 0.7 L Glucose 104 H POC Glucose Calcium 8.2 L Phosphorus Magnesium C-Reactive Protein 8.90 H NT-Pro-B Natriuret Pep 1581 H 01/22/17 01/22/17 01/22/17 13:09 14:35 15:30 WBC Hct [facility] RDW Plt Count Lymph % (Auto) Lymph # Seg Neutrophils % Seg Neutrophils # Sodium 136 L Potassium 3.1 L Chloride Carbon Dioxide BUN Creatinine 0.6 L Glucose 130 H POC Glucose 120 H 172 H Calcium 7.9 L Phosphorus Magnesium C-Reactive Protein NT-Pro-B Natriuret Pep 01/22/17 01/22/17 01/22/17 16:09 17:21 18:40 WBC Hct MCH MCHC RDW Plt Count Lymph % (Auto) Lymph # Seg Neutrophils % Seg Neutrophils # Sodium Potassium Chloride Carbon Dioxide BUN Creatinine Glucose POC Glucose 130 H 125 H 138 H Calcium Phosphorus Magnesium C-Reactive Protein NT-Pro-B Natriuret Pep 01/22/17 01/22/17 01/22/17 20:11 21:08 23:05 WBC Hct MCH MCHC RDW Plt Count Lymph % (Auto) Lymph # Seg Neutrophils % Seg Neutrophils # Sodium Potassium Chloride Carbon Dioxide BUN Creatinine Glucose POC Glucose 122 H 183 H 134 H Calcium Phosphorus Magnesium C-Reactive Protein NT-Pro-B Natriuret Pep 01/23/17 01/23/17 01/23/17 00:15 01:12 02:15 WBC Hct MCH MCHC RDW Plt Count Lymph % (Auto) Lymph # Seg Neutrophils % Seg Neutrophils # Sodium Potassium Chloride Carbon Dioxide BUN Creatinine Glucose POC Glucose 182 H 167 H 142 H Calcium Phosphorus Magnesium C-Reactive Protein NT-Pro-B Natriuret Pep 01/23/17 01/23/17 01/23/17 03:08 04:00 04:45 WBC 13.2 H Hct 34.4 L D MCH 33 H MCHC 36 H RDW 12.6 L Plt Count 124 L Lymph % (Auto) 7.6 L Lymph # 1.0 L Seg Neutrophils % 87.0 H Seg Neutrophils # 11.4 H Sodium Potassium Chloride Carbon Dioxide BUN Creatinine Glucose POC Glucose 128 H Calcium Phosphorus < 0.3 L* D Magnesium C-Reactive Protein NT-Pro-B Natriuret Pep 01/23/17 01/23/17 05:00 05:51 WBC Hct MCH MCHC RDW Plt Count Lymph % (Auto) Lymph # Seg Neutrophils % Seg Neutrophils # Sodium 135 L Potassium 2.1 L* D Chloride Carbon Dioxide BUN 8 L Creatinine 0.5 L Glucose 140 H POC Glucose 165 H Calcium 7.9 L Phosphorus Magnesium C-Reactive Protein NT-Pro-B Natriuret Pep Chest x-ray: image reviewed
[2017-01-23] MEDS: ALUM-MAG HYDROX-SIMETH 200-200-20MG/5ML PO PRN (15:16)
[2017-01-23] MEDS: PHOS-NAK PO SCH ×3 (15:16→21:55)
--- NOTE | 2017-01-23 15:18 | Progress Note ---
Assessment and Plan Assessment and plan: DKA with altered mental status Malnutrition Leukocytosis Substance abuse - Alert and oriented - Treated according to DKA protocol, currently patient is out of DKA and he is on 70/30 - Was given IV and PO will check BMP now - Continue empirically on Levaquin, leukocytosis is trending down - We will monitor closely - Counseled about stopping using marijuana - Urinalysis negative, blood culture no growth so far DVT prophylaxis - lovenox Disposition - Continue inpatient care The high probability of a clinically significant, sudden or life threatening deterioration of the [Endocrine, neurologic] system(s) required my full and direct attention, intervention and personal management. The aggregate critical care time was [32] minutes. This time is in addition to time spent performing reported procedures but includes the following: [x] Data Review and interpretation [x] Patient assessment and monitoring of vital signs [x] Documentation [x] Medication orders and management History Interval history: Patient was active and communicative today. He has mild epigastric pain likely from vomiting on the previous days. Mother and father were in the room while I examine the patient. Hospitalist Physical - Physical exam Narrative exam: Not in cardiopulmonary distress. The patient is cachectic. Vital signs as documented. Head exam is unremarkable. No scleral icterus . Neck is without jugular venous distension, thyromegaly, or carotid bruits. Lungs are clear to auscultation. Cardiac exam reveals regular rate and Rhythm. First and second heart sounds normal. No murmurs, rubs or gallops. Abdominal exam reveals normal bowel sounds, no masses, no organomegaly and no aortic enlargement. Extremities are nonedematous and both femoral and pedal pulses are normal. [employer]: alert and oriented x3. - Constitutional Vitals: Temp Pulse Resp BP Pulse Ox 98.3 F 90 11 L 100/53 98 01/23/17 12:00 01/23/17 14:30 01/23/17 14:30 01/23/17 14:30 01/23/17 14:30 Results - Labs CBC & Chem 7: 01/23/17 04:45 01/23/17 05:00 Labs: Laboratory Last Values WBC 13.2 K/mm3 (4.5-11.0) H 01/23/17 04:45 RBC 3.73 M/mm3 (3.65-5.03) 01/23/17 04:45 Hgb 12.4 gm/dl (11.8-15.2) 01/23/17 04:45 Hct 34.4 % (35.5-45.6) L D 01/23/17 04:45 MCV 92 fl (84-94) D 01/23/17 04:45 MCH 33 pg (28-32) H 01/23/17 04:45 MCHC 36 % (32-34) H 01/23/17 04:45 RDW 12.6 % (13.2-15.2) L 01/23/17 04:45 Plt Count 124 K/mm3 (140-440) L 01/23/17 04:45 Lymph % (Auto) 7.6 % (13.4-35.0) L 01/23/17 04:45 [place] % (Auto) 4.7 % (0.0-7.3) 01/23/17 04:45 Eos % (Auto) 0.1 % (0.0-4.3) 01/23/17 04:45 Baso % (Auto) 0.1 % (0.0-1.8) 01/23/17 04:45 Lymph # 1.0 K/mm3 (1.2-5.4) L 01/23/17 04:45 [place] # 0.6 K/mm3 (0.0-0.8) 01/23/17 04:45 Eos # 0.0 K/mm3 (0.0-0.4) 01/23/17 04:45 Baso # 0.0 K/mm3 (0.0-0.1) 01/23/17 04:45 Add Manual Diff Complete 01/21/17 18:36 Total Counted 100 01/21/17 18:36 Seg Neutrophils % 87.0 % (40.0-70.0) H 01/23/17 04:45 Seg Neuts % (Manual) 90.0 % (40.0-70.0) H 01/21/17 18:36 Band Neutrophils % 6.0 % 01/21/17 18:36 Lymphocytes % (Manual) 2.0 % (13.4-35.0) L 01/21/17 18:36 Reactive Lymphs % (Man) 0 % 01/21/17 18:36 Monocytes % (Manual) 2.0 % (0.0-7.3) 01/21/17 18:36 Eosinophils % (Manual) 0 % (0.0-4.3) 01/21/17 18:36 Metamyelocytes % 0 % 01/21/17 18:36 Myelocytes % 0 % 01/21/17 18:36 Promyelocytes % 0 % 01/21/17 18:36 Blast Cells % 0 % 01/21/17 18:36 Nucleated RBC % Not Reportable 01/21/17 18:36 Seg Neutrophils # 11.4 K/mm3 (1.8-7.7) H 01/23/17 04:45 Seg Neutrophils # Man 20.1 K/mm3 (1.8-7.7) H 01/21/17 18:36 Band Neutrophils # 1.3 K/mm3 01/21/17 18:36 Lymphocytes # (Manual) 0.4 K/mm3 (1.2-5.4) L 01/21/17 18:36 Abs React Lymphs (Man) 0.0 K/mm3 01/21/17 18:36 Monocytes # (Manual) 0.4 K/mm3 (0.0-0.8) 01/21/17 18:36 Eosinophils # (Manual) 0.0 K/mm3 (0.0-0.4) 01/21/17 18:36 Basophils # (Manual) 0.0 K/mm3 (0.0-0.1) 01/21/17 18:36 Metamyelocytes # 0.0 K/mm3 01/21/17 18:36 Myelocytes # 0.0 K/mm3 01/21/17 18:36 Promyelocytes # 0.0 K/mm3 01/21/17 18:36 Blast Cells # 0.0 K/mm3 01/21/17 18:36 WBC Morphology Not Reportable 01/21/17 18:36 Hypersegmented Neuts Not Reportable 01/21/17 18:36 Hyposegmented Neuts Not Reportable 01/21/17 18:36 Hypogranular Neuts Not Reportable 01/21/17 18:36 Smudge Cells Not Reportable 01/21/17 18:36 Toxic Granulation Not Reportable 01/21/17 18:36 Toxic Vacuolation Not Reportable 01/21/17 18:36 Dohle Bodies Not Reportable 01/21/17 18:36 Pelger-Huet Anomaly Not Reportable 01/21/17 18:36 Ruthie Rods Not Reportable 01/21/17 18:36 Platelet Estimate Consistent w auto 01/21/17 18:36 Clumped Platelets Not Reportable 01/21/17 18:36 Plt Clumps, EDTA Not Reportable 01/21/17 18:36 Large Platelets Not Reportable 01/21/17 18:36 Giant Platelets Not Reportable 01/21/17 18:36 Platelet Satelliting Not Reportable 01/21/17 18:36 Plt Morphology Comment Not Reportable 01/21/17 18:36 RBC Morphology Normal 01/21/17 18:36 Dimorphic RBCs Not Reportable 01/21/17 18:36 Polychromasia Not Reportable 01/21/17 18:36 Hypochromasia Not Reportable 01/21/17 18:36 Poikilocytosis Not Reportable 01/21/17 18:36 Anisocytosis Not Reportable 01/21/17 18:36 Microcytosis Not Reportable 01/21/17 18:36 Macrocytosis Not Reportable 01/21/17 18:36 Spherocytes Not Reportable 01/21/17 18:36 Pappenheimer Bodies Not Reportable 01/21/17 18:36 Sickle Cells Not Reportable 01/21/17 18:36 Target Cells Not Reportable 01/21/17 18:36 Tear Drop Cells Not Reportable 01/21/17 18:36 Ovalocytes Not Reportable 01/21/17 18:36 Helmet Cells Not Reportable 01/21/17 18:36 [place] Bodies Not Reportable 01/21/17 18:36 [place] Rings Not Reportable 01/21/17 18:36 [place] Cells Not Reportable 01/21/17 18:36 Bite Cells Not Reportable 01/21/17 18:36 Crenated Cell Not Reportable 01/21/17 18:36 Elliptocytes Not Reportable 01/21/17 18:36 Acanthocytes (Spur) Not Reportable 01/21/17 18:36 Rouleaux Not Reportable 01/21/17 18:36 Hemoglobin C Crystals Not Reportable 01/21/17 18:36 Schistocytes Not Reportable 01/21/17 18:36 Malaria parasites Not Reportable 01/21/17 18:36 Gregory Bodies Not Reportable 01/21/17 18:36 Hem Pathologist Commnt No 01/21/17 18:36 VBG pH 6.985 (7.320-7.420) L* 01/21/17 18:36 Sodium 135 mmol/L (137-145) L 01/23/17 05:00 Potassium 2.1 mmol/L (3.6-5.0) L* D 01/23/17 05:00 Chloride 98.0 mmol/L (98-107) 01/23/17 05:00 Carbon Dioxide 24 mmol/L (22-30) 01/23/17 05:00 Anion Gap 15 mmol/L 01/23/17 05:00 BUN 8 mg/dL (9-20) L 01/23/17 05:00 Creatinine 0.5 mg/dL (0.8-1.5) L 01/23/17 05:00 Estimated GFR > 60 ml/min 01/23/17 05:00 BUN/Creatinine Ratio 16.00 % 01/23/17 05:00 Glucose 140 mg/dL (75-100) H 01/23/17 05:00 POC Glucose 165 (70-105) H 01/23/17 05:51 Hemoglobin A1c 12.2 % (4-6) H 01/21/17 18:36 Osmolality 331 Mosm/kg 01/21/17 21:30 Lactic Acid 1.2 mmol/L (0.7-2.0) 01/22/17 13:24 Calcium 7.9 mg/dL (8.4-10.2) L 01/23/17 05:00 Phosphorus < 0.3 mg/dL (2.5-4.5) L* D 01/23/17 04:00 Magnesium 1.8 mg/dL (1.7-2.3) 01/23/17 04:00 C-Reactive Protein 8.90 mg/dL (0.00-1.30) H 01/22/17 12:52 NT-Pro-B Natriuret Pep 1581 pg/mL (0-450) H 01/22/17 12:52 Urine Color Yellow (Yellow) 01/22/17 09:35 Urine Turbidity Clear (Clear) 01/22/17 09:35 Urine pH 6.0 (5.0-7.0) 01/22/17 09:35 Ur Specific [place] 1.018 (1.003-1.030) 01/22/17 09:35 Urine Protein 30 mg/dl mg/dL (Negative) 01/22/17 09:35 Urine Glucose (UA) >=500 mg/dL (Negative) 01/22/17 09:35 Urine Ketones 80 mg/dL (Negative) 01/22/17 09:35 Urine Blood Mod (Negative) 01/22/17 09:35 Urine Nitrite Neg (Negative) 01/22/17 09:35 Urine Bilirubin Neg (Negative) 01/22/17 09:35 Urine Urobilinogen < 2.0 mg/dL (<2.0) 01/22/17 09:35 Ur Leukocyte Esterase Neg (Negative) 01/22/17 09:35 Urine WBC (Auto) 2.0 /HPF (0.0-6.0) 01/22/17 09:35 Urine RBC (Auto) < 1.0 /HPF (0.0-6.0) 01/22/17 09:35 U Epithel Cells (Auto) < 1.0 /HPF (0-13.0) 01/22/17 09:35 Urine Mucus Few /HPF 01/22/17 09:35 Urine Opiates Screen Presumptive negative 01/22/17 09:35 Urine Methadone Screen Presumptive negative 01/22/17 09:35 Ur Barbiturates Screen Presumptive negative 01/22/17 09:35 Ur Phencyclidine Scrn Presumptive negative 01/22/17 09:35 Ur Amphetamines Screen Presumptive negative 01/22/17 09:35 U Benzodiazepines Scrn Presumptive negative 01/22/17 09:35 Urine Cocaine Screen Presumptive negative 01/22/17 09:35 U Marijuana (THC) Screen Presumptive positive 01/22/17 09:35 Drugs of Abuse Note Disclamer 01/22/17 09:35 Hypokalemia - Imaging and Cardiology MRI - head: image reviewed (negative for acute intracranial process)
[2017-01-23 20:33] LABS: Blood Urea Nitrogen 8 mg/dL (9-20); Calcium 7.8 mg/dL (8.4-10.2); Carbon Dioxide 31 mmol/L (22-30); Chloride 97.6 mmol/L (98-107); Glucose 98 mg/dL (75-100); Sodium 142 mmol/L (137-145)
[2017-01-23 21:24] LABS: Anion Gap 16 mmol/L
[2017-01-23 21:26] LABS: Potassium 2.2 mmol/L (3.6-5.0)
[2017-01-23] MEDS: NACL 0.9% 1000 ML 1,000 ML IV SCH (21:57)
[2017-01-23] MEDS ORDERED: MAGNESIUM SULFATE IV ONE (22:36)
[2017-01-23] MEDS: K-DUR PO SCH (23:20)
[2017-01-24] MEDS: K-DUR PO SCH (02:55)
[2017-01-24] MEDS: NACL 0.9% 1000 ML 1,000 ML IV SCH ×2 (06:19→13:18)
[2017-01-24] MEDS: LEVAQUIN PO SCH (09:46)
[2017-01-24] MEDS: PEPCID PO SCH (09:47)
[2017-01-24] MEDS: LOVENOX SUB-Q SCH (09:50)
[2017-01-24 10:04] LABS: Basophils % (Auto) 0.2 % (0.0-1.8); Eosinophils % (Auto) 0.1 % (0.0-4.3); Mean Corpuscular HGB Conc 37 % (32-34); Mean Corpuscular Hemoglobin 34 pg (28-32); Mean Corpuscular Volume 92 fl (84-94); Platelet Count 129 K/mm3 (140-440); Red Blood Count 3.71 M/mm3 (3.65-5.03); Red Cell Distribution Width 12.5 % (13.2-15.2); White Blood Count 10.7 K/mm3 (4.5-11.0)
[2017-01-24 10:08] LABS: Hemoglobin 12.5 gm/dl (11.8-15.2)
[2017-01-24 10:16] LABS: Blood Urea Nitrogen 9 mg/dL (9-20); Carbon Dioxide 30 mmol/L (22-30); Glucose 288 mg/dL (75-100)
[2017-01-24 10:17] LABS: Anion Gap 14 mmol/L; Chloride 94.1 mmol/L (98-107); Sodium 135 mmol/L (137-145)
--- NOTE | 2017-01-24 10:22 | Event Note ---
Date: 01/24/17 doing better DKA resolved Hypotension resolved ..will see prn at this point
[2017-01-24] MEDS ORDERED: K-DUR PO ONE (11:30)
[2017-01-24] MEDS ORDERED: KPHOS 45 MMOL in NACL 0.9% 500 ML 500 ML IV ONE (12:31)
--- NOTE | 2017-01-24 12:40 | Progress Note ---
Assessment and Plan Assessment and plan: DKA with altered mental status Malnutrition Leukocytosis Substance abuse - Alert and oriented - Treated according to DKA protocol, currently patient is out of DKA and he is on 70/30 - Was given IV and PO will check BMP - Continue empirically on Levaquin, leukocytosis is trending down - We will monitor closely - Counseled about stopping using marijuana - Urinalysis negative, blood culture no growth so far - diabetic education DVT prophylaxis - lovenox Disposition - Continue inpatient care History Interval history: Patient was active and communicative today. Patient didn't have any new complaints. Hospitalist Physical - Physical exam Narrative exam: Not in cardiopulmonary distress. The patient is cachectic. Vital signs as documented. Head exam is unremarkable. No scleral icterus . Neck is without jugular venous distension, thyromegaly, or carotid bruits. Lungs are clear to auscultation. Cardiac exam reveals regular rate and Rhythm. First and second heart sounds normal. No murmurs, rubs or gallops. Abdominal exam reveals normal bowel sounds, no masses, no organomegaly and no aortic enlargement. Extremities are nonedematous and both femoral and pedal pulses are normal. REPAIRER PUMP: alert and oriented x3. - Constitutional Vitals: Temp Pulse Resp BP Pulse Ox 98.9 F 79 18 92/53 98 01/24/17 08:00 01/24/17 08:00 01/24/17 08:00 01/24/17 08:00 01/24/17 08:00 Results - Labs CBC & Chem 7: 01/24/17 09:48 01/24/17 09:48 Labs: Laboratory Last Values WBC 10.7 K/mm3 (4.5-11.0) 01/24/17 09:48 RBC 3.71 M/mm3 (3.65-5.03) 01/24/17 09:48 Hgb 12.5 gm/dl (11.8-15.2) 01/24/17 09:48 Hct 34.0 % (35.5-45.6) L 01/24/17 09:48 MCV 92 fl (84-94) 01/24/17 09:48 MCH 34 pg (28-32) H 01/24/17 09:48 MCHC 37 % (32-34) H 01/24/17 09:48 RDW 12.5 % (13.2-15.2) L 01/24/17 09:48 Plt Count 129 K/mm3 (140-440) L 01/24/17 09:48 Lymph % (Auto) 12.4 % (13.4-35.0) L 01/24/17 09:48 Boyd % (Auto) 4.1 % (0.0-7.3) 01/24/17 09:48 Eos % (Auto) 0.1 % (0.0-4.3) 01/24/17 09:48 Baso % (Auto) 0.2 % (0.0-1.8) 01/24/17 09:48 Lymph # 1.3 K/mm3 (1.2-5.4) 01/24/17 09:48 Boyd # 0.4 K/mm3 (0.0-0.8) 01/24/17 09:48 Eos # 0.0 K/mm3 (0.0-0.4) 01/24/17 09:48 Baso # 0.0 K/mm3 (0.0-0.1) 01/24/17 09:48 Add Manual Diff Complete 01/21/17 18:36 Total Counted 100 01/21/17 18:36 Seg Neutrophils % 83.2 % (40.0-70.0) H 01/24/17 09:48 Seg Neuts % (Manual) 90.0 % (40.0-70.0) H 01/21/17 18:36 Band Neutrophils % 6.0 % 01/21/17 18:36 Lymphocytes % (Manual) 2.0 % (13.4-35.0) L 01/21/17 18:36 Reactive Lymphs % (Man) 0 % 01/21/17 18:36 Monocytes % (Manual) 2.0 % (0.0-7.3) 01/21/17 18:36 Eosinophils % (Manual) 0 % (0.0-4.3) 01/21/17 18:36 Metamyelocytes % 0 % 01/21/17 18:36 Myelocytes % 0 % 01/21/17 18:36 Promyelocytes % 0 % 01/21/17 18:36 Blast Cells % 0 % 01/21/17 18:36 Nucleated RBC % Not Reportable 01/21/17 18:36 Seg Neutrophils # 8.9 K/mm3 (1.8-7.7) H 01/24/17 09:48 Seg Neutrophils # Man 20.1 K/mm3 (1.8-7.7) H 01/21/17 18:36 Band Neutrophils # 1.3 K/mm3 01/21/17 18:36 Lymphocytes # (Manual) 0.4 K/mm3 (1.2-5.4) L 01/21/17 18:36 Abs React Lymphs (Man) 0.0 K/mm3 01/21/17 18:36 Monocytes # (Manual) 0.4 K/mm3 (0.0-0.8) 01/21/17 18:36 Eosinophils # (Manual) 0.0 K/mm3 (0.0-0.4) 01/21/17 18:36 Basophils # (Manual) 0.0 K/mm3 (0.0-0.1) 01/21/17 18:36 Metamyelocytes # 0.0 K/mm3 01/21/17 18:36 Myelocytes # 0.0 K/mm3 01/21/17 18:36 Promyelocytes # 0.0 K/mm3 01/21/17 18:36 Blast Cells # 0.0 K/mm3 01/21/17 18:36 WBC Morphology Not Reportable 01/21/17 18:36 Hypersegmented Neuts Not Reportable 01/21/17 18:36 Hyposegmented Neuts Not Reportable 01/21/17 18:36 Hypogranular Neuts Not Reportable 01/21/17 18:36 Smudge Cells Not Reportable 01/21/17 18:36 Toxic Granulation Not Reportable 01/21/17 18:36 Toxic Vacuolation Not Reportable 01/21/17 18:36 Dohle Bodies Not Reportable 01/21/17 18:36 Pelger-Huet Anomaly Not Reportable 01/21/17 18:36 Ruthie Rods Not Reportable 01/21/17 18:36 Platelet Estimate Consistent w auto 01/21/17 18:36 Clumped Platelets Not Reportable 01/21/17 18:36 Plt Clumps, EDTA Not Reportable 01/21/17 18:36 Large Platelets Not Reportable 01/21/17 18:36 Giant Platelets Not Reportable 01/21/17 18:36 Platelet Satelliting Not Reportable 01/21/17 18:36 Plt Morphology Comment Not Reportable 01/21/17 18:36 RBC Morphology Normal 01/21/17 18:36 Dimorphic RBCs Not Reportable 01/21/17 18:36 Polychromasia Not Reportable 01/21/17 18:36 Hypochromasia Not Reportable 01/21/17 18:36 Poikilocytosis Not Reportable 01/21/17 18:36 Anisocytosis Not Reportable 01/21/17 18:36 Microcytosis Not Reportable 01/21/17 18:36 Macrocytosis Not Reportable 01/21/17 18:36 Spherocytes Not Reportable 01/21/17 18:36 Pappenheimer Bodies Not Reportable 01/21/17 18:36 Sickle Cells Not Reportable 01/21/17 18:36 Target Cells Not Reportable 01/21/17 18:36 Tear Drop Cells Not Reportable 01/21/17 18:36 Ovalocytes Not Reportable 01/21/17 18:36 Helmet Cells Not Reportable 01/21/17 18:36 [place] Bodies Not Reportable 01/21/17 18:36 [place] Rings Not Reportable 01/21/17 18:36 [place] Cells Not Reportable 01/21/17 18:36 Bite Cells Not Reportable 01/21/17 18:36 Crenated Cell Not Reportable 01/21/17 18:36 Elliptocytes Not Reportable 01/21/17 18:36 Acanthocytes (Spur) Not Reportable 01/21/17 18:36 Rouleaux Not Reportable 01/21/17 18:36 Hemoglobin C Crystals Not Reportable 01/21/17 18:36 Schistocytes Not Reportable 01/21/17 18:36 Malaria parasites Not Reportable 01/21/17 18:36 Gregory Bodies Not Reportable 01/21/17 18:36 Hem Pathologist Commnt No 01/21/17 18:36 VBG pH 6.985 (7.320-7.420) L* 01/21/17 18:36 Sodium 135 mmol/L (137-145) L 01/24/17 09:48 Potassium 3.0 mmol/L (3.6-5.0) L D 01/24/17 09:48 Chloride 94.1 mmol/L (98-107) L 01/24/17 09:48 Carbon Dioxide 30 mmol/L (22-30) 01/24/17 09:48 Anion Gap 14 mmol/L 01/24/17 09:48 BUN 9 mg/dL (9-20) 01/24/17 09:48 Creatinine 0.4 mg/dL (0.8-1.5) L 01/24/17 09:48 Estimated GFR > 60 ml/min 01/24/17 09:48 BUN/Creatinine Ratio 22.50 % 01/24/17 09:48 Glucose 288 mg/dL (75-100) H 01/24/17 09:48 POC Glucose 276 (70-105) H 01/24/17 06:07 Hemoglobin A1c 12.2 % (4-6) H 01/21/17 18:36 Osmolality 331 Mosm/kg 01/21/17 21:30 Lactic Acid 1.2 mmol/L (0.7-2.0) 01/22/17 13:24 Calcium 8.0 mg/dL (8.4-10.2) L 01/24/17 09:48 Phosphorus < 0.3 mg/dL (2.5-4.5) L* D 01/23/17 04:00 Magnesium 1.8 mg/dL (1.7-2.3) 01/23/17 04:00 C-Reactive Protein 8.90 mg/dL (0.00-1.30) H 01/22/17 12:52 NT-Pro-B Natriuret Pep 1581 pg/mL (0-450) H 01/22/17 12:52 Urine Color Yellow (Yellow) 01/22/17 09:35 Urine Turbidity Clear (Clear) 01/22/17 09:35 Urine pH 6.0 (5.0-7.0) 01/22/17 09:35 Ur Specific [place] 1.018 (1.003-1.030) 01/22/17 09:35 Urine Protein 30 mg/dl mg/dL (Negative) 01/22/17 09:35 Urine Glucose (UA) >=500 mg/dL (Negative) 01/22/17 09:35 Urine Ketones 80 mg/dL (Negative) 01/22/17 09:35 Urine Blood Mod (Negative) 01/22/17 09:35 Urine Nitrite Neg (Negative) 01/22/17 09:35 Urine Bilirubin Neg (Negative) 01/22/17 09:35 Urine Urobilinogen < 2.0 mg/dL (<2.0) 01/22/17 09:35 Ur Leukocyte Esterase Neg (Negative) 01/22/17 09:35 Urine WBC (Auto) 2.0 /HPF (0.0-6.0) 01/22/17 09:35 Urine RBC (Auto) < 1.0 /HPF (0.0-6.0) 01/22/17 09:35 U Epithel Cells (Auto) < 1.0 /HPF (0-13.0) 01/22/17 09:35 Urine Mucus Few /HPF 01/22/17 09:35 Urine Opiates Screen Presumptive negative 01/22/17 09:35 Urine Methadone Screen Presumptive negative 01/22/17 09:35 Ur Barbiturates Screen Presumptive negative 01/22/17 09:35 Ur Phencyclidine Scrn Presumptive negative 01/22/17 09:35 Ur Amphetamines Screen Presumptive negative 01/22/17 09:35 U Benzodiazepines Scrn Presumptive negative 01/22/17 09:35 Urine Cocaine Screen Presumptive negative 01/22/17 09:35 U Marijuana (THC) Screen Presumptive positive 01/22/17 09:35 Drugs of Abuse Note Disclamer 01/22/17 09:35
[2017-01-24] MEDS: ALUM-MAG HYDROX-SIMETH 200-200-20MG/5ML PO PRN (17:09)
[2017-01-24] MEDS: MILK OF MAGNESIA PO PRN ×2 (17:13→22:59)
[2017-01-25] MEDS: NACL 0.9% 1000 ML 1,000 ML IV SCH (05:04)
[2017-01-25 05:31] LABS: Blood Urea Nitrogen 7 mg/dL (9-20); Calcium 8.7 mg/dL (8.4-10.2); Carbon Dioxide 26 mmol/L (22-30); Glucose 240 mg/dL (75-100)
[2017-01-25 06:43] LABS: Anion Gap 17 mmol/L; Chloride 97.3 mmol/L (98-107); Potassium 4.5 mmol/L (3.6-5.0); Sodium 136 mmol/L (137-145)
--- NOTE | 2017-01-25 09:33 | Discharge Summary ---
Providers - Providers Date of Admission: 01/21/17 20:49 Date of discharge: 01/25/17 Attending physician: SKY GUIDO MD 01/22/17 13:32 PICC Line Insertion [Consult to PICC Line RN] [CONS] Stat Reason For Exam: Hypontension, critical patient Type Line:: PICC 01/24/17 07:49 Consult to Dietitian/Nutrition [CONS] Routine Physician Instructions: Reason For Exam: Reason for Consult: Diet education Primary care physician: CLINICAL DIETICIAN Hospitalization Reason for admission: DKA Condition: Stable Hospital course: 26-year-old -Armenian male with no significant past medical history presented to the emergency department complaining of vomiting for the last 3 days. Initially the patient was very weak for one day, after that he started having vomiting, which was progressively increased over the last 3 days. The patient was very weak and short of breath. He also said he noticed significant amount of weight over the last couple of months. The patient also complains of diffuse abdominal pain. Patient denied any history of diabetes. Patient is vegan but states she has been eating a lot of gummy beers and junk foods recently. Patient never been to primary care physician. Patient also admits for polyuria, polydipsia and tongue dryness. The patient also confused on presentation to the emergency department. Patient was worked up and she found out to have DKA with elevated glucose severely on around gap acidosis low bicarbonate level and he was admitted to ICU and treated according to DKA protocol. The patient does leukocytosis and empirically treated with antibiotics. Patient is getting better progressively his mentation come back to normal he starts to eat and drink and he was started with insulin 70/30 25 units in the morning and 15 units in the evening and patient discharged home in improved. He also get diabetic education. Patient was stable at the time of discharge. Diabetic supplies where prescribed at the time of discharge. His mother is a nurse and she says she is going to check his blood glucose level and take him to his primary care physician with blood glucose logs. Disposition: DISCHARGED TO HOME OR SELFCARE Time spent for discharge: 31 minutes - Discharge Diagnoses (1) Dehydration Status: Acute (2) Diabetic ketoacidosis Status: Acute Qualifiers: Diabetes mellitus type: type 1 Diabetes mellitus complication detail: without coma Qualified Code(s): E10.10 - Type 1 diabetes mellitus with ketoacidosis without coma (3) High anion gap metabolic acidosis Status: Acute (4) Leukocytosis Status: Acute Qualifiers: Leukocytosis type: unspecified Qualified Code(s): D72.829 - Elevated white blood cell count, unspecified Core Measure Documentation - Palliative Care Palliative Care/ Comfort Measures: Not Applicable - Core Measures Any of the following diagnoses?: none Exam - Physical Exam Narrative exam: Not in cardiopulmonary distress. The patient is cachectic. Vital signs as documented. Head exam is unremarkable. No scleral icterus . Neck is without jugular venous distension, thyromegaly, or carotid bruits. Lungs are clear to auscultation. Cardiac exam reveals regular rate and Rhythm. First and second heart sounds normal. No murmurs, rubs or gallops. Abdominal exam reveals normal bowel sounds, no masses, no organomegaly and no aortic enlargement. Extremities are nonedematous and both femoral and pedal pulses are normal. GAME TESTER: alert and oriented x3. - Constitutional Vitals: Temp Pulse Resp BP Pulse Ox 98.1 F 78 18 98/62 100 01/25/17 07:30 01/25/17 07:30 01/25/17 07:30 01/25/17 07:30 01/25/17 08:05 Plan Activity: no restrictions Weight Bearing Status: Full Weight Bearing Diet: diabetic Follow up with: PRIMARY CAREMD [Primary Care Provider] - 7 Days Prescriptions: Insulin NPH/Regular [NovoLIN 70/30] 15 unit SUB-Q QHS #1 vial Famotidine [Pepcid] 20 mg PO QDAY #14 tablet Insulin NPH/Regular [NovoLIN 70/30] 25 unit SUB-Q QAMDIAB #1 vial
[2017-01-25] MEDS ORDERED: TRIPLE ANTIBIOTIC TP ONE (10:44)
[2017-01-25] MEDS: LOVENOX SUB-Q SCH (10:47)
[2017-01-25] MEDS: LEVAQUIN PO SCH (10:47)
[2017-01-25] MEDS: PEPCID PO SCH (10:47)
[2017-01-25 16:19] VITALS: BP 93/61
[2017-01-26 08:06] LABS: B-Hydroxybutyrate 15.3 mmol/L (0.2 - 0.28)
== END 2017-01-25 15:35 | disposition home or self-care (01) | DRG 871 ==
LOC: ED 17:59 → CC1 20:49 → 3A 01-23 18:18
PROVIDERS: ADMIT Internal Medicine; ATTEND Internal Medicine
DX: A39.1 Waterhouse-Friderichsen syndrome (principal); E10.10 Type 1 diabetes mellitus with ketoacidosis without coma; E87.1 Hypo-osmolality and hyponatremia; E46 Unspecified protein-calorie malnutrition; Z68.1 Body mass index [BMI] 19.9 or less, adult; E86.0 Dehydration; D72.829 Elevated white blood cell count, unspecified; N28.9 Disorder of kidney and ureter, unspecified; E87.5 Hyperkalemia; I95.9 Hypotension, unspecified; F19.10 Other psychoactive substance abuse, uncomplicated; F12.90 Cannabis use, unspecified, uncomplicated
CPT/HCPCS: 36415; 70450; 71010; 80048; 80307; 81001; 82010; 82140; 82805; 82962; 83036; 83735; 83880; 83930; 84100; 85007; 85025; 86140; 87040; 87086; 90686; 90732; 93005; 93010; 96374; A6250; J1650; J1815; J1956; J3230; J3475; J3480; J7030; J7040; J7050

== ENCOUNTER 2017-03-31 14:17 | Inpatient (IN) | payer SELFPAY ==
--- NOTE | 2017-03-31 16:17 | Emergency Department Report ---
Entered by KIMBERLI AGUDELO, acting as scribe for JUAN C PATEL NP. Chief Complaint: Hyperglycemia Stated Complaint: BP HIGH Time Seen by Provider: 03/31/17 16:06 - HPI History of Present Illness: 26 y/o male, c/o high blood sugar and fatigue since yesterday. - ROS Review of Systems: +high blood sugar +fatigue + abd pain + nausea - wt loss - Exam Vital Signs: Vital Signs 03/31/17 16:04 Temperature 97.6 F Pulse Rate 113 H Respiratory 22 Rate Blood Pressure 110/76 O2 Sat by Pulse 100 Oximetry Physical Exam: Thin male Patient is alert and oriented x3. no active vomiting in triage MSE screening note: Focused history and physical exam performed. Due to findings the following was ordered: labs ED Disposition for MSE Condition: Stable This documentation as recorded by the scribe,KIMBERLI AGUDELO,accurately reflects the service I personally performed and the decisions made by ,JUAN C PATEL, CHAMBER WORKER.
[2017-03-31 16:41] LABS: Basophils % (Auto) 0.5 % (0.0-1.8); Hematocrit 48.5 % (35.5-45.6); Mean Corpuscular HGB Conc 33 % (32-34); Mean Corpuscular Hemoglobin 34 pg (28-32); Mean Corpuscular Volume 103 fl (84-94); Platelet Count 202 K/mm3 (140-440); Red Blood Count 4.72 M/mm3 (3.65-5.03); Red Cell Distribution Width 13.1 % (13.2-15.2); White Blood Count 11.6 K/mm3 (4.5-11.0)
[2017-03-31] MEDS ORDERED: NACL 0.9% 1000 ML 2,000 ML ONE (17:20)
[2017-03-31 17:21] LABS: Albumin 4.7 g/dL (3.9-5); Albumin/Globulin Ratio 1.3 %; Alkaline Phosphatase 103 units/L (35-129); Blood Urea Nitrogen 11 mg/dL (9-20); Calcium 8.4 mg/dL (8.4-10.2); Chloride 91.5 mmol/L (98-107); Glucose 368 mg/dL (75-100); Lipase 43 units/L (13-60); Sodium 129 mmol/L (137-145); Total Protein 8.3 g/dL (6.3-8.2)
[2017-03-31] MEDS ORDERED: NACL 0.9% 1000 ML 1,000 ML IV ONE ×3 (17:28→19:00)
[2017-03-31] MEDS ORDERED: ZOFRAN IV ONE (17:28)
[2017-03-31 17:30] LABS: Bilirubin,Urine NEG (Negative); Blood,Urine SM (Negative); Ketones,Urine 80 mg/dL (Negative); Leukocyte Esterase,Urine NEG (Negative); Mucus,Urine FEW /HPF; Nitrite,Urine NEG (Negative); Urobilinogen,Urine < 2.0 mg/dL (<2.0); WBC,Urine < 1.0 /HPF (0.0-6.0)
--- NOTE | 2017-03-31 17:30 | Emergency Department Report ---
ED General Adult HPI - General Chief complaint: Hyperglycemia Stated complaint: BP HIGH Time Seen by Provider: 03/31/17 16:06 Source: patient, EMS (ems notes not available at time of chart dictation), RN notes reviewed, old records reviewed Mode of arrival: Ambulatory Limitations: No Limitations - History of Present Illness Initial comments: This is a 26-year-old male. He is previously unknown to me. He has a history of diabetes and diabetic ketoacidosis. The patient presents to the ER with nausea, malaise, dehydration, stating he thinks he feels like his previous episode of diabetic ketoacidosis. He denies headache, neck pain, . He denies chest pain per se, but admits to upper abdominal and epigastric burning. He denies dysuria and testicular pain. His symptoms are constant. He indicates the improve when he attempts to defecate. They worsen when he attempts to eat or drink. -: Gradual Location: abdomen Consistency: intermittent Improves with: other (per hpi) Worsens with: other (per hpi) Associated Symptoms: loss of appetite, malaise, nausea/vomiting, shortness of breath, weakness. denies: confusion, diaphoresis - Related Data Previous Rx's Medication Instructions Recorded Last Taken Type Insulin NPH/Regular [NovoLIN 70/30] 15 unit SUB-Q QHS #1 vial 01/25/17 Unknown Rx Insulin NPH/Regular [NovoLIN 70/30] 25 unit SUB-Q QAMDIAB #1 vial 01/25/17 Unknown Rx Allergies Allergy/AdvReac Type Severity Reaction Status Date / Time No Known Allergies Allergy Unverified 01/21/17 18:01 ED Review of Systems ROS: Stated complaint: BP HIGH Other details as noted in HPI Constitutional: malaise. denies: fever Eyes: denies: vision change ENT: denies: epistaxis Respiratory: shortness of breath Cardiovascular: chest pain Gastrointestinal: vomiting Genitourinary: denies: dysuria Musculoskeletal: denies: back pain Skin: denies: lesions Neurological: weakness Psychiatric: as per HPI ED Past Medical Hx - Past Medical History Previous Medical History?: Yes Hx Diabetes: Yes Hx Deep Vein Thrombosis: No - Surgical History Past Surgical History?: No Hx Pacemaker: No Hx Internal Defibrillator: No - Social History Smoking Status: Current Every Day Smoker Substance Use Type: Alcohol, Prescribed - Medications Home Medications: Home Medications Medication Instructions Recorded Confirmed Last Taken Type Insulin NPH/Regular [NovoLIN 70/30] 15 unit SUB-Q QHS #1 vial 01/25/17 03/31/17 Unknown Rx Insulin NPH/Regular [NovoLIN 70/30] 25 unit SUB-Q QAMDIAB #1 vial 01/25/1703/31 Unknown Rx ED Physical Exam - General Limitations: No Limitations General appearance: alert, in no apparent distress - Head Head exam: Present: atraumatic, normocephalic - Eye Eye exam: Present: normal appearance, EOMI. Absent: nystagmus - ENT ENT exam: Present: normal exam, mucous membranes dry - Neck Neck exam: Present: normal inspection, full ROM. Absent: tenderness, meningismus - Respiratory Respiratory exam: Present: normal lung sounds bilaterally. Absent: respiratory distress, wheezes, rales, rhonchi, stridor, chest wall tenderness - Cardiovascular Cardiovascular Exam: Present: normal rhythm, tachycardia, normal heart sounds. Absent: systolic murmur, diastolic murmur, rubs, gallop - GI/Abdominal GI/Abdominal exam: Present: soft, normal bowel sounds. Absent: distended, tenderness, guarding, rebound, rigid, pulsatile mass - Rectal Rectal exam: Present: deferred - Extremities Exam Extremities exam: Present: normal inspection, full ROM, normal capillary refill. Absent: pedal edema, joint swelling, calf tenderness - Back Exam Back exam: Present: normal inspection, full ROM. Absent: tenderness, CVA tenderness (R), CVA tenderness (L), muscle spasm, paraspinal tenderness, vertebral tenderness - Neurological Exam Neurological exam: Present: alert, oriented X3, other (Extraocular movements intact. Tongue midline. No facial droop. Facial sensation intact to light touch in the V1, V2, V3 distribution bilaterally. 5 and 5 strength in 4 extremities.. Sensation is intact to light touch in 4 extremities.). Absent: motor sensory deficit - Psychiatric Psychiatric exam: Present: normal affect, normal mood - Skin Skin exam: Present: warm, dry, intact, normal color. Absent: rash ED Course Vital Signs 03/31/17 03/31/17 03/31/17 16:04 17:28 17:30 Temperature 97.6 F Pulse Rate 113 H 80 104 H Respiratory 22 19 16 Rate Blood Pressure 110/76 105/72 Blood Pressure [Left] O2 Sat by Pulse 100 100 Oximetry 03/31/17 03/31/17 03/31/17 17:40 18:55 19:25 Temperature 97.5 F L 97.4 F L Pulse Rate 101 H 92 H Respiratory 17 20 Rate Blood Pressure 105/72 Blood Pressure 112/77 [Left] O2 Sat by Pulse 100 100 Oximetry - Reevaluation(s) Reevaluation #1: 03/31/17 17:57 differential diagnosis: Diabetic ketoacidosis, dehydration, anion gap acidosis, pneumonia, urinary tract infection Assessment and plan: 26-year-old male with diabetic ketoacidosis. He is started on IV fluids, insulin push and insulin drip. He is also given an amp of sodium bicarbonate. The case is presented to the Hospital physician, Dr. Mccoy, who accepts the patient to his service quite graciously. The case is presented to the ICU physician on-call, Dr. Villa, who agrees with placement in the intensive care unit. ED Medical Decision Making - Lab Data Result diagrams: 03/31/17 16:12 03/31/17 18:24 Vital Signs 03/31/17 16:04 Temperature 97.6 F Pulse Rate 113 H Respiratory 22 Rate Blood Pressure 110/76 O2 Sat by Pulse 100 Oximetry Lab Results 03/31/17 03/31/17 03/31/17 Range/Units 16:12 16:12 16:12 WBC 11.6 H (4.5-11.0) K/mm3 RBC 4.72 (3.65-5.03) M/mm3 Hgb 16.0 H (11.8-15.2) gm/dl Hct 48.5 H (35.5-45.6) % MCV 103 H (84-94) fl MCH 34 H (28-32) pg MCHC 33 (32-34) % RDW 13.1 L (13.2-15.2) % Plt Count 202 (140-440) K/mm3 Lymph % (Auto) 10.4 L (13.4-35.0) % [place] % (Auto) 4.8 (0.0-7.3) % Eos % (Auto) 0.0 (0.0-4.3) % Baso % (Auto) 0.5 (0.0-1.8) % Lymph # 1.2 (1.2-5.4) K/mm3 Beck[place] # 0.6 (0.0-0.8) K/mm3 Eos # 0.0 (0.0-0.4) K/mm3 Baso # 0.1 (0.0-0.1) K/mm3 Seg Neutrophils % 84.3 H (40.0-70.0) % Seg Neutrophils # 9.8 H (1.8-7.7) K/mm3 VBG pH 7.027 L* (7.320-7.420) Sodium 129 L (137-145) mmol/L Potassium 4.6 (3.6-5.0) mmol/L Chloride 91.5 L (98-107) mmol/L Carbon Dioxide 2 L* (22-30) mmol/L Anion Gap 40 mmol/L BUN 11 (9-20) mg/dL Creatinine 1.1 (0.8-1.5) mg/dL Estimated GFR > 60 ml/min BUN/Creatinine Ratio 10.00 % Glucose 368 H (75-100) mg/dL POC Glucose (70-105) Calcium 8.4 (8.4-10.2) mg/dL Total Bilirubin 0.40 (0.1-1.2) mg/dL AST 41 H (5-40) units/L ALT 28 (7-56) units/L Alkaline Phosphatase 103 (35-129) units/L Total Protein 8.3 H (6.3-8.2) g/dL Albumin 4.7 (3.9-5) g/dL Albumin/Globulin Ratio 1.3 % Lipase 43 (13-60) units/L Urine Color (Yellow) Urine Turbidity (Clear) Urine pH (5.0-7.0) Ur Specific [place] (1.003-1.030) Urine Protein (Negative) mg/dL Urine Glucose (UA) (Negative) mg/dL Urine Ketones (Negative) mg/dL Urine Blood (Negative) Urine Nitrite (Negative) Urine Bilirubin (Negative) Urine Urobilinogen (<2.0) mg/dL Ur Leukocyte Esterase (Negative) Urine WBC (Auto) (0.0-6.0) /HPF Urine RBC (Auto) (0.0-6.0) /HPF U Epithel Cells (Auto) (0-13.0) /HPF Urine Mucus /HPF 03/31/17 03/31/17 Range/Units 17:05 17:44 WBC (4.5-11.0) K/mm3 RBC (3.65-5.03) M/mm3 Hgb (11.8-15.2) gm/dl Hct (35.5-45.6) % MCV (84-94) fl MCH (28-32) pg MCHC (32-34) % RDW (13.2-15.2) % Plt Count (140-440) K/mm3 Lymph % (Auto) (13.4-35.0) % [place] % (Auto) (0.0-7.3) % Eos % (Auto) (0.0-4.3) % Baso % (Auto) (0.0-1.8) % Lymph # (1.2-5.4) K/mm3 [place] # (0.0-0.8) K/mm3 Eos # (0.0-0.4) K/mm3 Baso # (0.0-0.1) K/mm3 Seg Neutrophils % (40.0-70.0) % Seg Neutrophils # (1.8-7.7) K/mm3 VBG pH (7.320-7.420) Sodium (137-145) mmol/L Potassium (3.6-5.0) mmol/L Chloride (98-107) mmol/L Carbon Dioxide (22-30) mmol/L Anion Gap mmol/L BUN (9-20) mg/dL Creatinine (0.8-1.5) mg/dL Estimated GFR ml/min BUN/Creatinine Ratio % Glucose (75-100) mg/dL POC Glucose 343 H (70-105) Calcium (8.4-10.2) mg/dL Total Bilirubin (0.1-1.2) mg/dL AST (5-40) units/L ALT (7-56) units/L Alkaline Phosphatase (35-129) units/L Total Protein (6.3-8.2) g/dL Albumin (3.9-5) g/dL Albumin/Globulin Ratio % Lipase (13-60) units/L Urine Color Yellow (Yellow) Urine Turbidity Clear (Clear) Urine pH 5.0 (5.0-7.0) Ur Specific [place] 1.024 (1.003-1.030) Urine Protein 100 mg/dl (Negative) mg/dL Urine Glucose (UA) >=500 (Negative) mg/dL Urine Ketones 80 (Negative) mg/dL Urine Blood Sm (Negative) Urine Nitrite Neg (Negative) Urine Bilirubin Neg (Negative) Urine Urobilinogen < 2.0 (<2.0) mg/dL Ur Leukocyte Esterase Neg (Negative) Urine WBC (Auto) < 1.0 (0.0-6.0) /HPF Urine RBC (Auto) 8.0 (0.0-6.0) /HPF U Epithel Cells (Auto) < 1.0 (0-13.0) /HPF Urine Mucus Few /HPF - EKG Data -: EKG Interpreted by Me Rate: tachycardia - EKG Data 03/31/17 17:58 sinus tachycardia, 104 bpm, normal axis, QTC 462 ms, nonspecific T-wave abnormality, not morphologically consistent with STEMI. - Radiology Data Radiology results: image reviewed interpreted by me: X-ray of the chest is hyperinflated, otherwise no acute disease Critical Care Time: Yes Critical care time in (mins) excluding proc time.: 35 Critical care attestation.: If time is entered above; I have spent that time in minutes in the direct care of this critically ill patient, excluding procedure time. Critical Care Time: Critical care time includes multiple bedside evaluations, interpretation of laboratory studies, radiology studies, time spent managing critically ill patient with multiple electrolyte and metabolic derangements, requiring IV push of insulin, insulin drip, sodium bicarbonate, consultation with hospital medicine and critical care medicine. This does not include procedure time. ED Disposition Clinical Impression: Diabetic ketoacidosis, Dehydration Disposition: -09 OP ADMIT IP TO THIS HOSP Is pt being admited?: Yes Condition: Critical
[2017-03-31 17:35] LABS: Potassium 4.6 mmol/L (3.6-5.0)
[2017-03-31 17:42] LABS: Anion Gap 40 mmol/L; Carbon Dioxide 2 mmol/L (22-30)
[2017-03-31 17:43] LABS: Alanine Aminotransferase 28 units/L (7-56)
[2017-03-31] MEDS ORDERED: D50W (25GM) IV PRN ×2 (17:48)
--- NOTE | 2017-03-31 17:48 | History and Physical Report ---
History of Present Illness Chief complaint: I dont feel good History of present illness: 26 YO Male with DM, Medication noncompliance, severe malnutrition, Nicotine Dependence presents to ED for evaluation. Pt states that he has been feeling sick for the past week with worsening symptoms over the past day. Pt acknowledges polydipsia, polyuria, polyphagia, as well as nausea and vomiting. PT denies fever, chills, CP, Palpitations, Syncope, headache, neck pain. Past History Past Medical History: diabetes Past Surgical History: No surgical history, Other (reviewed) Social history: single, smoking. denies: alcohol abuse, prescription drug abuse , IV drug use Family history: hypertension Medications and Allergies Allergies Allergy/AdvReac Type Severity Reaction Status Date / Time No Known Allergies Allergy Unverified 01/21/17 18:01 Home Medications Medication Instructions Recorded Confirmed Last Taken Type Insulin NPH/Regular [NovoLIN 70/30] 15 unit SUB-Q QHS #1 vial 01/25/17 03/31/17 Unknown Rx Insulin NPH/Regular [NovoLIN 70/30] 25 unit SUB-Q QAMDIAB #1 vial 01/25/1703/31 Unknown Rx Active Meds: Active Medications Sodium Chloride (Nacl 0.9% 1000 Ml) 1,000 mls @ 999 mls/hr IV BOLUS ONE Stop: 03/31/17 18:28 Last Admin: 03/31/17 17:39 Dose: 999 mls/hr Sodium Chloride (Nacl 0.9% 1000 Ml) 1,000 mls @ 999 mls/hr IV BOLUS ONE Stop: 03/31/17 18:39 Last Admin: 03/31/17 17:39 Dose: 999 mls/hr Review of Systems All systems: negative Gastrointestinal: nausea, vomiting Endocrine: polyphagia, polydipsia, polyuria Exam - Constitutional Vitals: Temp Pulse Resp BP Pulse Ox 97.6 F 113 H 22 110/76 100 03/31/17 16:04 03/31/17 16:04 03/31/17 16:04 03/31/17 16:04 03/31/17 16:04 General appearance: Present: mild distress - EENT Eyes: Present: PERRL ENT: hearing intact, clear oral mucosa, other (OP:dry) - Neck Neck: Present: supple, normal ROM - Respiratory Respiratory effort: normal Respiratory: bilateral: CTA - Cardiovascular Heart Sounds: Present: S1 & S2. Absent: rub, click - Extremities Extremities: pulses symmetrical, No edema Peripheral Pulses: within normal limits - Abdominal General gastrointestinal: Present: soft, non-tender, non-distended, normal bowel sounds Male genitourinary: Present: normal - Integumentary Integumentary: Present: clear, dry - Musculoskeletal Musculoskeletal: gait normal, strength equal bilaterally - Psychiatric Psychiatric: appropriate mood/affect, intact judgment & insight - Neurologic Neurologic: CNII-XII intact, moves all extremities Results - Labs CBC & Chem 7: 03/31/17 16:12 04/01/17 00:42 Labs: Abnormal lab results 03/31/17 03/31/17 03/31/17 Range/Units 16:12 16:12 16:12 WBC 11.6 H (4.5-11.0) K/mm3 Hgb 16.0 H (11.8-15.2) gm/dl Hct 48.5 H (35.5-45.6) % MCV 103 H (84-94) fl MCH 34 H (28-32) pg RDW 13.1 L (13.2-15.2) % Lymph % (Auto) 10.4 L (13.4-35.0) % Seg Neutrophils % 84.3 H (40.0-70.0) % Seg Neutrophils # 9.8 H (1.8-7.7) K/mm3 VBG pH 7.027 L* (7.320-7.420) Sodium 129 L (137-145) mmol/L Chloride 91.5 L (98-107) mmol/L Carbon Dioxide 2 L* (22-30) mmol/L Glucose 368 H (75-100) mg/dL AST 41 H (5-40) units/L Total Protein 8.3 H (6.3-8.2) g/dL Assessment and Plan - Patient Problems (1) Diabetic ketoacidosis Current Visit: Yes Status: Acute Qualifiers: Diabetes mellitus type: D Diabetes mellitus complication detail: D Plan to address problem: DKA protocol: Insulin drip, IV fluid, monitor anion gap, supportive care, serial lactate levels The high probability of a clinically significant, sudden or life threatening deterioration of the [/endocrine, cardiac, renal, pulmonary] system(s) required my full and direct attention, intervention and personal management. The aggregate critical care time was [65] minutes. This time is in addition to time spent performing reported procedures but includes the following: [x] Data Review and interpretation [x] Patient assessment and monitoring of vital signs [x] Documentation [x] Medication orders and management (2) Severe malnutrition Current Visit: Yes Status: Acute Plan to address problem: Encourage increased protein intake, (3) High anion gap metabolic acidosis Current Visit: No Status: Acute Plan to address problem: treat DKA, continue ivf, serial lactate level (4) DVT (deep venous thrombosis) Current Visit: Yes Status: Acute Qualifiers: DVT location: D Affected thrombotic vein of extremity: A Chronicity: C Laterality: L
[2017-03-31] MEDS ORDERED: SODIUM BICARBONATE IV ONE (17:55)
[2017-03-31] MEDS ORDERED: NovoLIN R 100 UNITS in NACL 0.9% 99 ML IV SCH ×2 (18:00→19:00)
[2017-03-31 18:57] LABS: Blood Urea Nitrogen 9 mg/dL (9-20); Calcium 7.8 mg/dL (8.4-10.2); Chloride 96.6 mmol/L (98-107); Glucose 298 mg/dL (75-100); Potassium 4.3 mmol/L (3.6-5.0); Sodium 136 mmol/L (137-145)
[2017-03-31 18:58] LABS: Magnesium 1.9 mg/dL (1.7-2.3); Phosphorous 2.2 mg/dL (2.5-4.5)
[2017-03-31] MEDS ORDERED: NACL 0.9% 1000 ML 1,000 ML ONE (19:03)
[2017-03-31 19:30] LABS: Anion Gap 37 mmol/L
[2017-03-31 19:35] LABS: Carbon Dioxide 7 mmol/L (22-30)
--- NOTE | 2017-03-31 19:52 | Admit Criteria Form ---
Admission Criteria Documentation: DIABETES Clinical Indications for Admission to Inpatient Care (Place 'X' for any and all applicable criteria): Admission is indicated by presence of ALL (if I & II) or ANY ONE (if III or IV) of the following (1)(2)(3)(4): [X ]I. Diabetes is uncontrolled as indicated by ANY ONE of the following: [X ]a) Diabetic ketoacidosis as indicated by ALL of the following (8): [ X]i) Hyperglycemia (eg, plasma glucose greater than 200 mg /dL (11.1 mmol/L)) [X ]ii) Acidosis (eg, arterial pH less than 7.30, serum bicarbonate level less than 15 mEq/L (mmol/L)) [X ]iii) Moderate ketonuria or ketonemia [ ]b) Hyperglycemic hyperosmolar state as indicated by ALL of the following(9)(10): [ ]i) Neurologic dysfunction (eg, stupor, coma, hemiparesis , seizure)(13) [ ]ii) Plasma glucose greater than 600 mg/dL (33.3 mmol/L) [ ]iii) Serum osmolality greater than 320 mOsm/kg (mmol/kg) [ ]c) Severe signs or symptoms secondary to hyperglycemia indicated by ANY ONE of the following: [ ]i) Altered mental status(10) [ ]ii) Significant hypovolemia or dehydration [ ]iii) Intractable nausea or vomiting [ ]iv) Unexplained fever or severe infection [ ]v) Severe electrolyte abnormality (eg, hypokalemia, hyperkalemia, hypernatremia) [ ]II. Management at other levels of care (Also use Diabetes: Observation Care as appropriate) is not feasible because of ANY ONE of the following: [ ]a) Condition was not adequately corrected with treatment at other levels of care. [ ]b) Treatment at other levels of care is not appropriate because of condition severity (eg, hyperosmolar coma). [ ]III. Contraindications and/or Inappropriate clinical situations for Observational Care in patients with Diabetes, when ANY ONE of the following is required: [ ]a) Patient require specific diagnostic workup or therapeutic intervention 22 [ ]b) Patient with abnormal vital signs or altered mental status 23 [ ]IV. General contraindications and/or Inappropriate clinical situations for Observational Care in patients with Diabetes, when ANY ONE of the following is required: [ ]a) Prediction of prolongation of LOS based on ANY ONE of the following may be considered as a contraindication for observational care 2, 3, 4, 5, 6, 7, 8, 9, 10, 11 [ ]i) Age > 65 yrs. [ ]ii) Patient arriving by ambulance [ ]iii) Patient with high acuity [ ]iv) Patient requiring vital sign monitoring [ ]v) Patient on IV medication [ ]b) Systolic blood pressures 180mmHg 3,12 [ ]c) Patient with altered mental status including delirium and other alteration of consciousness, (3) [ ]d) Patient whose discharge disposition will be to a [place] [facility] home or rehabilitation home should not be managed in Emergency Department Observation Unit. CMS rule requires 3 days hospital stay before such placement.3,13 [ ]e) Patient with failure to thrive due to broad array of etiologies 3,16,17 [ ]f) Inability to ambulate 3,14 Extended stay beyond goal length of stay may be needed for(3)(20): [ ]a) Treatment of precipitating causes [ ]b) Development of hypoglycemia [ ]c) Complications of treatment [ ]d) Complications of decompensated diabetes (eg, acute gastric dilatation, persistent metabolic or neurologic derangement) [ ]e) Active Comorbidities [ ]f) Older patients( 65 years or older) The original [employer] content created by [employer] has been revised. The portions of the content which have been revised are identified through the use of italic text or in bold,and [facility] has neither reviewed nor approved the modified material. All other unmodified content is copyright [employer]. Please see references footnoted in the original [employer] edition 2016 Admission Criteria Met: Yes
[2017-03-31] MEDS ORDERED: D5W/0.45% NACL/KCL 20 MEQ 20 MEQ/1,000 ML BAG IV ONE (20:48)
[2017-03-31] MEDS ORDERED: D5W/0.45% NACL/KCL 20 MEQ 20 MEQ/1,000 ML BAG IV SCH ×2 (21:05→22:00)
[2017-04-01 00:11] LABS: Blood Urea Nitrogen 6 mg/dL (9-20); Calcium 7.4 mg/dL (8.4-10.2); Chloride 98.7 mmol/L (98-107); Glucose 223 mg/dL (75-100); Potassium 3.2 mmol/L (3.6-5.0); Sodium 130 mmol/L (137-145)
[2017-04-01 00:13] LABS: Anion Gap 27 mmol/L; Carbon Dioxide 8 mmol/L (22-30)
[2017-04-01 01:14] LABS: Anion Gap 23 mmol/L; Blood Urea Nitrogen 6 mg/dL (9-20); Calcium 7.7 mg/dL (8.4-10.2); Carbon Dioxide 11 mmol/L (22-30); Chloride 99.9 mmol/L (98-107); Glucose 214 mg/dL (75-100); Potassium 3.1 mmol/L (3.6-5.0); Sodium 131 mmol/L (137-145)
--- NOTE | 2017-04-01 08:01 | XRay Report ---
CHEST ONE VIEW INDICATION: Chest pain. COMPARISON: 01/22/2017. FINDINGS: Portable, single, frontal chest radiograph demonstrates normal cardiomediastinal silhouette. Well-expanded lungs. Subtle 9 mm round nodular density may though project over the right fifth rib with subtle surrounding halo. Inteval right upper extremity PICC removal. Unremarkable bones. Extrinsic EKG leads. CONCLUSION: 1. Questionable 9 mm nodular density projects over the right upper lobe, not identified on the prior exams. Though may be artifactual or on the skin surface, it is not entirely excluded pulmonary at this time. Please correlate clinically. Additional oblique and lateral views or chest CT may help further characterize, if warranted. 2. Other findings, including interval right upper extremity PICC removal. I phoned the above results to Dr. Carias in the ER, 7:40 AM, 04/01/2017. Thank you for the opportunity to participate in this patient's care.
[2017-04-01 10:07] LABS: Anion Gap 15 mmol/L; BUN/Creatinine Ratio 8.33; Blood Urea Nitrogen 5 mg/dL (9-20); Calcium 8.4 mg/dL (8.4-10.2); Carbon Dioxide 17 mmol/L (22-30); Chloride 106.1 mmol/L (98-107); Glucose 101 mg/dL (75-100); Potassium 3.1 mmol/L (3.6-5.0); Sodium 135 mmol/L (137-145)
[2017-04-01] MEDS ORDERED: D50W (25GM) IV PRN (12:38)
--- NOTE | 2017-04-01 12:48 | Progress Note ---
Assessment and Plan Assessment and plan: DKA. Patient's anion gap is closed. IV insulin drip has been discontinued. Patient will be transitioned to long-acting insulin. Patient will be transferred to the floor. Severe protein calorie malnutrition. Continue to encourage by mouth intake. Insulin-dependent Diabetes mellitus. Patient will resume his home insulin regimen of insulin 70/30 25 units every morning and 15 units daily at bedtime. History Interval history: No new issues overnight. Hospitalist Physical - Constitutional Vitals: Temp Pulse Resp BP Pulse Ox 97.4 F L 81 9 L 86/53 99 03/31/17 19:25 04/01/17 03:00 04/01/17 03:00 04/01/17 03:00 04/01/17 03:00 General appearance: Present: no acute distress - EENT Eyes: Present: PERRL, EOM intact ENT: hearing intact, clear oral mucosa, dentition normal - Neck Neck: Present: supple, normal ROM - Respiratory Respiratory effort: normal Respiratory: bilateral: CTA - Cardiovascular Rhythm: regular Heart Sounds: Present: S1 & S2. Absent: gallop, rub - Extremities Extremities: no ischemia, No edema, Full ROM - Abdominal General gastrointestinal: soft, non-tender, non-distended, normal bowel sounds - Integumentary Integumentary: Present: clear, warm, dry - Neurologic Neurologic: CNII-XII intact, moves all extremities Results - Labs CBC & Chem 7: 03/31/17 16:12 04/01/17 09:30 Labs: Laboratory Last Values WBC 11.6 K/mm3 (4.5-11.0) H 03/31/17 16:12 RBC 4.72 M/mm3 (3.65-5.03) 03/31/17 16:12 Hgb 16.0 gm/dl (11.8-15.2) H 03/31/17 16:12 Hct 48.5 % (35.5-45.6) H 03/31/17 16:12 MCV 103 fl (84-94) H 03/31/17 16:12 MCH 34 pg (28-32) H 03/31/17 16:12 MCHC 33 % (32-34) 03/31/17 16:12 RDW 13.1 % (13.2-15.2) L 03/31/17 16:12 Plt Count 202 K/mm3 (140-440) 03/31/17 16:12 Lymph % (Auto) 10.4 % (13.4-35.0) L 03/31/17 16:12 [place] % (Auto) 4.8 % (0.0-7.3) 03/31/17 16:12 Eos % (Auto) 0.0 % (0.0-4.3) 03/31/17 16:12 Baso % (Auto) 0.5 % (0.0-1.8) 03/31/17 16:12 Lymph # 1.2 K/mm3 (1.2-5.4) 03/31/17 16:12 [place] # 0.6 K/mm3 (0.0-0.8) 03/31/17 16:12 Eos # 0.0 K/mm3 (0.0-0.4) 03/31/17 16:12 Baso # 0.1 K/mm3 (0.0-0.1) 03/31/17 16:12 Seg Neutrophils % 84.3 % (40.0-70.0) H 03/31/17 16:12 Seg Neutrophils # 9.8 K/mm3 (1.8-7.7) H 03/31/17 16:12 VBG pH 7.027 (7.320-7.420) L* 03/31/17 16:12 Sodium 135 mmol/L (137-145) L 04/01/17 09:30 Potassium 3.1 mmol/L (3.6-5.0) L 04/01/17 09:30 Chloride 106.1 mmol/L (98-107) 04/01/17 09:30 Carbon Dioxide 17 mmol/L (22-30) L 04/01/17 09:30 Anion Gap 15 mmol/L 04/01/17 09:30 BUN 5 mg/dL (9-20) L 04/01/17 09:30 Creatinine 0.6 mg/dL (0.8-1.5) L 04/01/17 09:30 Estimated GFR > 60 ml/min 04/01/17 09:30 BUN/Creatinine Ratio 8.33 % 04/01/17 09:30 Glucose 101 mg/dL (75-100) H 04/01/17 09:30 POC Glucose 92 (70-105) 04/01/17 09:57 Calcium 8.4 mg/dL (8.4-10.2) 04/01/17 09:30 Phosphorus 2.20 mg/dL (2.5-4.5) L 03/31/17 18:24 Magnesium 1.90 mg/dL (1.7-2.3) 03/31/17 18:24 Total Bilirubin 0.40 mg/dL (0.1-1.2) 03/31/17 16:12 AST 41 units/L (5-40) H 03/31/17 16:12 ALT 28 units/L (7-56) 03/31/17 16:12 Alkaline Phosphatase 103 units/L (35-129) 03/31/17 16:12 Troponin T < 0.010 ng/mL (0.00-0.029) 03/31/17 16:12 Total Protein 8.3 g/dL (6.3-8.2) H 03/31/17 16:12 Albumin 4.7 g/dL (3.9-5) 03/31/17 16:12 Albumin/Globulin Ratio 1.3 % 03/31/17 16:12 Lipase 43 units/L (13-60) 03/31/17 16:12 Urine Color Yellow (Yellow) 03/31/17 17:05 Urine Turbidity Clear (Clear) 03/31/17 17:05 Urine pH 5.0 (5.0-7.0) 03/31/17 17:05 Ur Specific [place] 1.024 (1.003-1.030) 03/31/17 17:05 Urine Protein 100 mg/dl mg/dL (Negative) 03/31/17 17:05 Urine Glucose (UA) >=500 mg/dL (Negative) 03/31/17 17:05 Urine Ketones 80 mg/dL (Negative) 03/31/17 17:05 Urine Blood Sm (Negative) 03/31/17 17:05 Urine Nitrite Neg (Negative) 03/31/17 17:05 Urine Bilirubin Neg (Negative) 03/31/17 17:05 Urine Urobilinogen < 2.0 mg/dL (<2.0) 03/31/17 17:05 Ur Leukocyte Esterase Neg (Negative) 03/31/17 17:05 Urine WBC (Auto) < 1.0 /HPF (0.0-6.0) 03/31/17 17:05 Urine RBC (Auto) 8.0 /HPF (0.0-6.0) 03/31/17 17:05 U Epithel Cells (Auto) < 1.0 /HPF (0-13.0) 03/31/17 17:05 Urine Mucus Few /HPF 03/31/17 17:05
[2017-04-01] MEDS ORDERED: PERCOCET 5/325 PO PRN ×2 (15:48)
--- NOTE | 2017-04-01 16:04 | Event Note ---
Date: 04/01/17 Dr. Mccoy thank you for asking us to participate in the care of this patient. Patient has no complaint of respiratory symptoms. Patient has slight history of smoking. stopped smoking one year. Since patient has no respiratory symptoms at this time, signing off the case. n
[2017-04-01] MEDS: NACL 0.9% 1000 ML 1,000 ML IV SCH (22:50)
[2017-04-02] MEDS: NACL 0.9% 1000 ML 1,000 ML IV SCH (08:37)
--- NOTE | 2017-04-02 11:09 | Discharge Summary ---
Providers - Providers Date of Admission: 03/31/17 17:48 Date of discharge: 04/02/17 Attending physician: LINDA EPPERSON 04/02/17 10:30 Consult to Dietitian/Nutrition [CONS] Stat Physician Instructions: needs nutition education Reason For Exam: Reason for Consult: Diet education Primary care physician: [employer] Hospitalization Reason for admission: dka Condition: Critical Hospital course: 26 YO Male with DM, Medication noncompliance, severe malnutrition, Nicotine Dependence presented to ED for evaluation. Pt stated that he had been feeling sick for the past week with worsening symptoms over the past day prior to admission. Pt acknowledged polydipsia, polyuria, polyphagia, as well as nausea and vomiting. PT denies fever, chills, CP, Palpitations, Syncope, headache, neck pain. Patient states that he was recently diagnosed with diabetes mellitus approximately 1 month ago and presented with DKA at that time. Patient was placed on a DKA protocol and received IV insulin IV fluid hydration. During the hospital stay, DKA resolved and patient was transitioned to his home regimen of long-acting insulin. Patient's blood sugars stabilize. Patient felt back to his baseline. Patient is felt to have received maximal hospital benefit. Patient will be discharged home. Dedicated discharge time 32 minutes. Disposition: DC-01 TO HOME OR SELFCARE Time spent for discharge: 32 - Discharge Diagnoses (1) Diabetic ketoacidosis Status: Acute Qualifiers: Diabetes mellitus type: D Diabetes mellitus complication detail: D (2) Severe malnutrition Status: Acute (3) High anion gap metabolic acidosis Status: Acute Core Measure Documentation - Palliative Care Palliative Care/ Comfort Measures: Not Applicable - Core Measures Any of the following diagnoses?: none Exam - Constitutional Vitals: Temp Pulse Resp BP Pulse Ox 98.5 F 61 18 94/59 98 04/02/17 08:00 04/02/17 08:00 04/02/17 08:00 04/02/17 08:00 04/02/17 08:00 General appearance: Present: no acute distress, well-nourished - EENT Eyes: Present: PERRL ENT: hearing intact, clear oral mucosa - Neck Neck: Present: supple, normal ROM - Respiratory Respiratory effort: normal Respiratory: bilateral: CTA - Cardiovascular Heart Sounds: Present: S1 & S2. Absent: rub, click - Extremities Extremities: pulses symmetrical, No edema Peripheral Pulses: within normal limits - Abdominal General gastrointestinal: Present: soft, non-tender, non-distended, normal bowel sounds Male genitourinary: Present: normal - Integumentary Integumentary: Present: clear, warm, dry - Musculoskeletal Musculoskeletal: gait normal, strength equal bilaterally - Psychiatric Psychiatric: appropriate mood/affect, intact judgment & insight - Neurologic Neurologic: CNII-XII intact, moves all extremities Plan Activity: no restrictions Weight Bearing Status: Full Weight Bearing Diet: diabetic Follow up with: PRIMARY CARE, [Primary Care Provider] - 3-5 Days Prescriptions: Insulin NPH/Regular [NovoLIN 70/30] 15 unit SUB-Q QHS #1 vial Insulin NPH/Regular [NovoLIN 70/30] 25 unit SUB-Q QAMDIAB #1 vial oxyCODONE /ACETAMINOPHEN [Percocet 5/325 mg] 1 tab PO Q6H PRN #20 tablet PRN Reason: Pain, Moderate (4-6)
[2017-04-02 15:24] VITALS: BP 93/57
--- NOTE | 2017-04-02 16:24 | Event Note ---
Date: 04/01/17 I was called by the radiologist regarding a questionable radiology imaging discrepancy. I was told that the chest x-ray didn't fact show no acute process as stated by the ER attending but there was a questionable 9 mm nodule in the right upper lobe. The patient was still in the emergency department at that time but was admitted to the hospital and seen by internal medicine and pulmonology who both have access to the x-ray report and imaging.
--- NOTE | 2017-04-03 13:42 | Admit Criteria Form ---
Admission Criteria Documentation: DIABETES Clinical Indications for Admission to Inpatient Care (Place 'X' for any and all applicable criteria): Admission is indicated by presence of ALL (if I & II) or ANY ONE (if III or IV) of the following (1)(2)(3)(4): [ X]I. Diabetes is uncontrolled as indicated by ANY ONE of the following: [X ]a) Diabetic ketoacidosis as indicated by ALL of the following (8): [ X]i) Hyperglycemia (eg, plasma glucose greater than 200 mg /dL (11.1 mmol/L)) [X ]ii) Acidosis (eg, arterial pH less than 7.30, serum bicarbonate level less than 15 mEq/L (mmol/L)) [ X]iii) Moderate ketonuria or ketonemia [ ]b) Hyperglycemic hyperosmolar state as indicated by ALL of the following(9)(10): [ ]i) Neurologic dysfunction (eg, stupor, coma, hemiparesis , seizure)(13) [ ]ii) Plasma glucose greater than 600 mg/dL (33.3 mmol/L) [ ]iii) Serum osmolality greater than 320 mOsm/kg (mmol/kg) [ ]c) Severe signs or symptoms secondary to hyperglycemia indicated by ANY ONE of the following: [ ]i) Altered mental status(10) [ ]ii) Significant hypovolemia or dehydration [ ]iii) Intractable nausea or vomiting [ ]iv) Unexplained fever or severe infection [ ]v) Severe electrolyte abnormality (eg, hypokalemia, hyperkalemia, hypernatremia) [X ]II. Management at other levels of care (Also use Diabetes: Observation Care as appropriate) is not feasible because of ANY ONE of the following: [ ]a) Condition was not adequately corrected with treatment at other levels of care. [ X]b) Treatment at other levels of care is not appropriate because of condition severity (eg, hyperosmolar coma). [ ]III. Contraindications and/or Inappropriate clinical situations for Observational Care in patients with Diabetes, when ANY ONE of the following is required: [ ]a) Patient require specific diagnostic workup or therapeutic intervention 22 [ ]b) Patient with abnormal vital signs or altered mental status 23 [ ]IV. General contraindications and/or Inappropriate clinical situations for Observational Care in patients with Diabetes, when ANY ONE of the following is required: [ ]a) Prediction of prolongation of LOS based on ANY ONE of the following may be considered as a contraindication for observational care 2, 3, 4, 5, 6, 7, 8, 9, 10, 11 [ ]i) Age > 65 yrs. [ ]ii) Patient arriving by ambulance [ ]iii) Patient with high acuity [ ]iv) Patient requiring vital sign monitoring [ ]v) Patient on IV medication [ ]b) Systolic blood pressures 180mmHg 3,12 [ ]c) Patient with altered mental status including delirium and other alteration of consciousness, (3) [ ]d) Patient whose discharge disposition will be to a retirement home or rehabilitation home should not be managed in Emergency Department Observation Unit. CMS rule requires 3 days hospital stay before such placement.3,13 [ ]e) Patient with failure to thrive due to broad array of etiologies 3,16,17 [ ]f) Inability to ambulate 3,14 Extended stay beyond goal length of stay may be needed for(3)(20): [ ]a) Treatment of precipitating causes [ ]b) Development of hypoglycemia [ ]c) Complications of treatment [ ]d) Complications of decompensated diabetes (eg, acute gastric dilatation, persistent metabolic or neurologic derangement) [ ]e) Active Comorbidities [ ]f) Older patients( 65 years or older) The original [employer] content created by [employer] has been revised. The portions of the content which have been revised are identified through the use of italic text or in bold,and [facility] has neither reviewed nor approved the modified material. All other unmodified content is copyright [employer]. Please see references footnoted in the original [employer] [facility] edition 2016 Admission Criteria Met: Yes
== END 2017-04-02 17:25 | disposition home or self-care (01) | DRG 637 ==
LOC: ED 14:17 → CC1 17:48 → 3A 04-01 12:51
PROVIDERS: ADMIT Internal Medicine; ATTEND Hospitalist
DX: E13.10 Other specified diabetes mellitus with ketoacidosis without coma (principal); E43 Unspecified severe protein-calorie malnutrition; Z68.1 Body mass index [BMI] 19.9 or less, adult; F17.210 Nicotine dependence, cigarettes, uncomplicated; E86.0 Dehydration; Z79.4 Long term (current) use of insulin; Z91.14 Patient's other noncompliance with medication regimen; Z82.49 Family history of ischemic heart disease and other diseases of the circulatory system
CPT/HCPCS: 36415; 71010; 80048; 80053; 81001; 82805; 82962; 83690; 83735; 84100; 84484; 85025; 93005; 93010; 96361; 96372; 96374; 96375; J1815; J2405; J7030